=== PATIENT | male | born 1940 | race Caucasian/White ===

== ENCOUNTER 2018-12-12 08:15 | Day surgery (SDC) | payer MEDICARE, OTHER, SELFPAY ==
[2018-12-12 08:43] VITALS: BP 130/74; PULSE 45; RESP 16; TEMP 36.6; O2SAT 98; BMI 29.2
[2018-12-12] MEDS: Lactated Ringers 1,000 ML 100 ML IV (09:03)
--- NOTE | 2018-12-12 09:16 | RAD_ITS ---
STUDY: X-RAY - LEFT KNEE REASON FOR EXAM: Male, 78 years old. Fluoroscopic images TECHNIQUE: Multiple fluoroscopic views of the knee were performed. COMPARISON: None. FINDINGS: Fluoroscopic images demonstrate placement of needle radiofrequency probes at the superior articular capsular margin of the femur and tibia. Total knee arthroplasty is in place. RAD/Knee 1 or 2 Views IMPRESSION: Fluoroscopic images of the knee, refer to surgical report. Electronically Signed: Shane Yin, at 17:38 EDT Tel , Service support ,
[2018-12-12] MEDS: MethylPREDNISolone Acetate 80 MG/ML Vial (09:19)
[2018-12-12] MEDS: Bupivacaine 0.25% 30 ML Vial (09:19)
[2018-12-12 09:38] VITALS: BP 111/61; BP 130/74; PULSE 53; RESP 16; TEMP 36.6; O2SAT 95
[2018-12-12 09:45] VITALS: BP 112/67; BP 130/74; PULSE 51; RESP 16; O2SAT 97
[2018-12-12 09:50] VITALS: BP 117/74; BP 130/74; PULSE 49; RESP 16; O2SAT 96
[2018-12-12 09:55] VITALS: BP 126/74; BP 130/74; PULSE 53; RESP 16; TEMP 36.4; O2SAT 97
[2018-12-12 10:13] VITALS: BP 130/74
--- NOTE | 2018-12-12 12:24 | PCM.OPRPT ---
Report of Operation Date of Procedure: 12/12/18 Description of Surgical Findings:: PROCEDURE: Left knee radiofrequency ablation of the superior medial/superior lateral/inferior medial genicular nerve under direct visualization of fluoroscopy PREOPERATIVE DIAGNOSES: Osteoarthritis of the left knee, chronic postoperative knee pain POSTOPERATIVE DIAGNOSES: Osteoarthritis of the left knee, chronic postoperative knee pain ANESTHESIA: MAC COMPLICATIONS: None BLOOD LOSS: Minimal PROCEDURE IN DETAIL: History and physical today was reviewed. Risks and benefits of procedure explained. The patient understood, agreed to the procedure and informed consent was obtained. IV inserted per routine protocol. The patient was taken to the operating room, placed in the Supine position with a pillow underneath the left knee the left knee area was prepped and draped in a sterile fashion using iodine x3 nephroscopy guidance AP view the left knee was visualized the skin and subcutaneous tissue in size approximately 10 cc of preservative-free 1% lidocaine using a 25-gauge regular needle at the facility of the superior medial and superior lateral and inferior medial genicular nerves under direct visualization fluoroscopy starting at the left superior medial ending at the left inferior medial passing through the left superior lateral using a 10 cm with a 10 mm curved active tip radiofrequency ablation needle the needle passed through the skin the tip of the needle was maneuver and directed towards the diaphyseal junction of each corresponding level once the tip of the needle was at the vicinity of each corresponding genicular nerves under direct visualization with fluoroscopy on AP as well as lateral view to confirm correct placement of the needles stylette of each needle was then removed the radiofrequency ablation probe was then inserted at each level impedance was then recorded at the superior medial 324 at the superior lateral 379 at the inferior medial 265 oh motor evoked potential was then initiated to 1.5 V without any apparent motor response the probe was then removed intact and after repeated negative aspiration and confirmation of AP as well as lateral view a total of 6 cc of preservative-free 1% lidocaine were injected in divided doses between those 3 levels the probes were then inserted in each needles radiofrequency ablation was then initiated to 80 ?C for 90 seconds at each level once concluded the probes were then removed intact and a total of 6 cc of preservative-free 0.25% Marcaine with 40 mg of Depo-Medrol were injected in divided doses between those 3 levels the needles were then removed intact patient experienced no signs or symptoms of intravascular injection patient experienced no paresthesia. The procedure was completed without any apparent difficulty, any complication. The patient appeared to tolerate well. Sensory as well as motor exam was unchanged from prior to procedure. ASSESSMENT AND PLAN: This is a 78-year-old male with osteoarthritis of the left knee, chronic postoperative knee pain status post left knee genicular nerve radiofrequency ablation under fluoroscopic guidance. The patient will continue his current medications. The patient will follow up in approximately 2 weeks for reevaluation.
== END 2018-12-12 10:22 | disposition home or self-care (01) ==
LOC: SDC 08:16 → AC 08:18
PROVIDERS: Family Provider Internal Medicine; PCP Internal Medicine; Referring Provider Anesthesiology Pain Medicine; Visit Provider Anesthesiology Pain Medicine
PROC: (CPT 64640; principal; 2018-12-12 09:25)
DX: M17.12 Unilateral primary osteoarthritis, left knee (principal); G89.28 Other chronic postprocedural pain; I25.10 Atherosclerotic heart disease of native coronary artery without angina pectoris; I25.2 Old myocardial infarction; I10 Essential (primary) hypertension; J43.9 Emphysema, unspecified; M79.7 Fibromyalgia; K21.9 Gastro-esophageal reflux disease without esophagitis; E78.00 Pure hypercholesterolemia, unspecified; Z95.5 Presence of coronary angioplasty implant and graft; Z86.711 Personal history of pulmonary embolism; Z79.01 Long term (current) use of anticoagulants; Z79.82 Long term (current) use of aspirin; Z79.899 Other long term (current) drug therapy; Z87.891 Personal history of nicotine dependence
CPT/HCPCS: 01991; 64640; 73560; 76000; J7120

== ENCOUNTER 2022-01-02 11:40 | Day surgery (SDC) | payer MEDICARE, OTHER, SELFPAY ==
[2022-01-02] VITALS (7 sets, daily range): BP systolic 142–180; BP diastolic 71–87; PULSE 56–63; RESP 16; TEMP 36.1–36.3; O2SAT 94–100; BMI 25.6
--- NOTE | 2022-01-02 11:45 | HP.PCM_ITS ---
History and Physical Date of Admission: 01/02/22 Date of Service:? 12/31/21 MR#: [id number] Acct: [id number] Name:? ELVIE DEGROOT Rep #: [id number] : 1940 ? ? Provider: Dr. Rea Hendrickson MD Age/Sex:? 81/M ? ? Location: [facility] Status: Signed Intake Vital Signs ? 12/31/2208:38 Height 5 ft 10.5 in Weight: 184 lb 2 oz BMI 26.0 BP 169/73 H Blood Pressure Location Rt brachial Position Sitting Respiration 16 Pulse 75 Pulse Source Monitor Temp 97.4 F L Temp Source Temporal Pulse Oximetry (%) 98 Oxygen Delivery MethodB room air Intake Visit Reasons:?PORT - [facility] SCHEDULED Chief Complaint: F/u for management of small cell lung cancer. DME Vendor: Port placement consult Is patient in pain?: No Allergies Penicillins Allergy (Verified 12/31/21 09:39) Unknown Medications albuterol sulfate 90 mcg/actuation aerosol inhaler 1 - 2 puff inhalation Q4H PRN PRN Sob &/Or Wheezing 12/07/18 [History Confirmed 12/31/21] aspirin 81 mg tablet,delayed release 81 mg PO DAILY 12/07/18 [History Confirmed 12/31/21] atenolol 25 mg tablet 25 mg PO DAILY 12/07/18 [History Confirmed 12/31/21] budesonide-formoterol HFA 160 mcg-4.5 mcg/actuation aerosol inhaler 2 puff inhalation BID 12/07/18 [History Confirmed 12/31/21] losartan 50 mg tablet 50 mg PO DAILY 12/07/18 [History Confirmed 12/31/21] pyridoxine (vitamin B6) 25 mg tablet 25 mg PO DAILY 12/07/18 [History Confirmed 12/31/21] rosuvastatin 40 mg tablet 40 mg PO DAILY 12/07/18 [History Confirmed 12/31/21] guaifenesin 600 mg tablet, extended release 12 hr 600 mg PO BID 12/12/21 [History Confirmed 12/31/21] ipratropium bromide 0.02 % solution for inhalation 500 mcg inhalation 12/12/21 [History Confirmed 12/31/21] prednisone 10 mg tablet tablet PO 12/12/21 [History Confirmed 12/31/21] sodium chloride 1 gram tablet 1,000 mg PO QD-QID PRN electrolyte replenishment #90 tabs 12/16/21 [Rx Confirmed 12/31/21] dexamethasone 4 mg tablet (Decadron) 4 mg PO DAILY #30 tabs 12/29/21 [Rx Confirmed 12/31/21] tramadol 50 mg tablet 50 mg PO TID PRN pain #60 tabs 12/29/21 [Rx Confirmed 12/31/21] PFSH Medical History? Abdominal aneurysm Surgical History? Hx of heart artery stent Hx of heart bypass surgery Hx of total knee replacement Family History? Mother Cancer ?? ? lungFather Heart disease CVA (cerebral vascular accident)Brother Heart diseaseSister Colon cancer Social History? Smoking Status:? Former smoker Tobacco: How many years used:? 40 how long ago did patient quit smoking:? 30 years HPI HPI HPI: 81-year-old male presents office with his for port placement due to small cell lung cancer?right lung.? Oncology is planning to try to start the treatment on 01/06 if possible.? Patient's PET scan did show some viable neoplasms in bilateral cervical areas as well. ROS General General: Yes weight change and fatigue; No appetite, colon cancer or breast cancer Additional Details: Recent 20 pound weight loss since November HEENT HEENT: No difficulty swallowing, eye injury, eye surgery, swollen glands or hoarseness Endo Endocrine: No thyroid disease, diabetes mellitus, thyroid cancer, Hair loss, heat intolerance or cold intolerance Skin Skin: No rash or changing moles Musc Musculoskeletal: No back problems, arthritis, rheumatoid arthritis, gout or joint pain Cardio Cardiovascular: Yes heart disease, high blood pressure, heart attack and heart stent; No murmur, pacemaker, atrial fibrillation, palpitations, shortness of breat with exertion or chest pain Psych Psychiatric: No depression, anxiety or hearing voices Resp Respiratory: Yes shortness of breath, No sleep apnea, Yes cough, Yes COPD, No asthma, No emphysema and Yes wheezing Gastro Gastrointestinal: No abdominal pain, No nausea or vomiting, No diarrhea, No constipation, No blood in stool, Yes acid reflux, No hemorrhoids, No ulcers, No gallbladder problem and No black,tarry stools Bobo Hematologic: Yes blood thinners, No blood disorders, No bleeding, No anemia and No blood clots Additional Details: ASA 81mg Neuro Neurologic: No numbness and No tingling Exam Const General: cooperative, healthy appearing and no acute distress [facility] Head: normal to inspection Neck Neck: normal visual inspection Chest Other: Palpation inspection of bilateral upper chest normal Resp Effort & Inspection: normal respiratory effort Cardio Rate: regular rate GI Inspection: non-distended Palpation: soft Skin General: no rashes or lesions noted Neuro General: patient oriented x3 Extrem General: no clubbing, cyanosis or edema Psych Affect: normal affect Assessment and Plan Assessment and Plan (1) Encounter for fitting and adjustment of vascular catheter: ?Status:?Acute (2) Small cell lung cancer, right lower lobe: ?Status:?Acute ?Comment: 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 Discussed SCLC, metastatic disease, treatment with chemotherapy and Immunotherapy vs supportive care. Pt wants therapy. Suggested therapy with Cisplatin/Etoposide and Imfinzi. Pt agrees to proceed. (3) Cancer-related pain: ?Status:?Acute ?Comment: Due to bone metastases. Coding Level of Care Code Off vis,new,level 3 Diagnoses Encounter for fitting and adjustment of vascular catheter? Z45.2 Small cell lung cancer, right lower lobe? C34.31 Cancer-related pain? G89.3 12/31/21 1007 <Electronically signed by Rea Hendrickson MD> Date Rea Hendrickson MD
[2022-01-02] MEDS: Lactated Ringers 1,000 ML 15 ML IV (12:17)
[2022-01-02] MEDS: Lidocaine 1% /Epi 1:100 (20ml) 20 ML Vial (13:20)
--- NOTE | 2022-01-02 13:51 | OP.PCM_ITS ---
Report of Operation Date of Procedure: 01/02/22 Pre-Operative Diagnosis: Z45.2, small cell lung cancer Post-Operative Diagnosis: Same Surgery/Procedure Performed:: 1. Placement of right IJ Port-A-Cath, 2. Use of ultrasound, 3. Use of fluoroscopy Surgeon: Rea Hendrickson Type of Anesthesia: Local MAC Anesthesiologist: Omar Vance Special Medications: Clindamycin 900 mg IV x1 Estimated Blood Loss (mL): <10 cc Fluids Replaced: Per anesthesia Description of Procedure: After informed consent was given, the patient was brought to the operating room and placed in the supine position. Appropriate time out protocol was followed. Patient was then given IV conscious sedation for anesthesia. The patient's bilateral upper chest and neck were then prepped with a surgical skin preparation and sterile surgical drapes were placed. After proper landmarks were ascertained, the skin at the upper right chest area was then infiltrated with 1:1 mixture of 1% lidocaine with epinephrine and 0.5% marcaine. A needle trocar was then inserted into the right internal jugular vein with ultrasound guidance-multiple vessels were viewed with u/s and the right IJ was chosen?metastatic lesion noted abutting the jugular bilaterally-- and there was good aspiration of venous blood. A wire was then threaded into the needle trocar and this was visualized under fluoroscopy to ensure that the wire was in the superior vena cava. Once this was done, then the needle trocar was removed. A small skin lynn was made with an 11 blade knife at the wire entrance site. The dilator with the introducer sheath attached was then placed over the wire into the right internal jugular vein via the Seldinger technique and this was visualized under fluoroscopy. The dilator and sheath were in proper position as visualized by fluoroscopy. A subcutaneous pocket was then created caudad to the catheter insertion site. A transverse skin incision was made after the skin and subcutaneous tissues were infiltrated with local anesthetic. Blunt dissection was then used to create a space large enough for placement of the subcutaneous port. The catheter was then tunneled into the subcutaneous pocket. The wire and dilator were then removed. The catheter was then threaded into the introducer sheath and was positioned with its tip at the junction of the superior vena cava and the right atrium as visualized under fluoroscopy. The excess catheter was transected. The catheter was then attached to the s ubcutaneous port using manufacturers guidelines. The catheter was flushed with a heparin saline mixture prior to placement. Hemostasis was carefully controlled with electrocautery. The port was sutured to the subcutaneous fascia using 2-0 Vicryl suture at two sites. The port was then placed in the subcutaneous pocket. The incision were reapproximated with interrupted subdermal 3-0 vicryl sutures. The skin was reapproximated with 3-0 nylon suture in a interrupted fashion. Steristrips were used for reinforcement of the skin closure at IJ insertion site and a sterile opsite dressings were applied. The patient tolerated the procedure well. Grafts/Implants Used: [employer] PowerPort isp M.R.I. 6Fr Lot [id number] Complications none
--- NOTE | 2022-01-02 13:54 | DCINST_ITS ---
Discharge Instructions Procedure Port-A-Cath Diet Discharge Diet: Light diet - advance as tolerated Activity May shower in (days): 5 (Keep port site clean and dry x5 days. Neck incision okay to get wet after 1 day. Okay to lower shower and upper sponge bath. OR okay to taper off port site with a Ziploc bag to shower) Lifting Restrictions: No lifting > 15 pounds for 3 days with the arm on the side of the port Dressing / Incision Call your doctor if your incision/area has: Continuous Slow Oozing, Sudden Increased Bleeding, Increased Pain/ Swelling, Increased Redness, Foul Smelling Discharge and Swelling at the incision site Call your doctor if you observe: Fever of 101 or Higher Change Dressing in: 2 days Follow Up Care Please Follow Up With: Rea Hendrickson MD When: In 10 days for permanent suture removal?call office for appointment Test Results: Test results from this visit will be discussed in further detail at your follow- up appointment, if applicable. Discharge Plan Admission Attending Provider: Rea Hendrickson Primary Care Provider: Lilibeth Ayala Discharge Orders/Prescriptions Prescriptions: No Action guaifenesin 600 mg tablet extended release 12hr 600 mg PO BID ipratropium bromide 0.02 % solution 500 mcg inhalation BID Label Comments: INHALE 1 VIAL IN NEBULIZER 4 TIMES DAILY NEEDED sodium chloride 1 gram tablet 1,000 mg PO QD-QID PRN (Reason: electrolyte replenishment) Qty: 90 0RF dexamethasone [Decadron] 4 mg tablet 4 mg PO DAILY Qty: 30 0RF tramadol 50 mg tablet 50 mg PO TID PRN (Reason: pain) Qty: 60 0RF lidocaine-prilocaine 2.5-2.5 % cream 1 applic topical ONCE PRN (Reason: port access) 30 Days Qty: 30 2RF ondansetron 8 mg tablet,disintegrating 8 mg PO Q8H PRN (Reason: nausea and vomiting) Qty: 30 2RF prochlorperazine maleate 10 mg tablet 10 mg PO Q6H PRN (Reason: nausea and vomiting) Qty: 30 2RF losartan 50 MG tablet 50 mg PO DAILY pyridoxine (vitamin B6) 25 MG tablet 25 mg PO DAILY atenolol 25 MG tablet 25 mg PO DAILY aspirin 81 MG tablet,delayed release (DR/EC) 81 mg PO DAILY rosuvastatin 40 MG tablet 40 mg PO DAILY budesonide-formoterol 1 INHALER inhaler 2 puff inhalation BID albuterol sulfate 1 INHALER inhaler 1 - 2 puff inhalation Q4H PRN PRN (Reason: Sob &/Or Wheezing) Referrals / Follow Up: Lilibeth Ayala MD [Primary Care Provider] - Disposition Disposition (needs filled in before D/C Order can be placed): Home, Self Care
--- NOTE | 2022-01-02 14:10 | RAD_ITS ---
STUDY: X-RAY CHEST REASON FOR EXAM: Male, 81 years old. port -- pacu TECHNIQUE: Single frontal view of the chest. COMPARISON: None. FINDINGS: There is a right-sided central venous catheter in place terminating within the expected region of the superior vena cava. There is a nonspecific opacity within the right lower lung that is partially curvilinear. Sternal cerclage wires are present from a prior sternotomy. There is cardiomegaly. Normal mediastinum and quan. Normal visualized pulmonary arteries. Normal visualized aortic arch and descending thoracic aorta. Normal visualized thoracic spine. There is a left ninth rib deformity consistent with a healed fracture. There is no demonstrated abnormality of the visualized soft tissue structures of the upper abdomen. RAD/CXR for Line Placement IMPRESSION: Right sided central venous catheter terminating at the expected region of the superior vena cava. Nonspecific opacity within the right lower lung likely secondary to underlying atelectasis and a possible neoplastic process. Electronically Signed: Coty Zamora MD at 14:28 EDT ,
== END 2022-01-02 15:25 | disposition home or self-care (01) ==
LOC: SDC 11:40 → AC 11:41
PROVIDERS: PCP Internal Medicine; Referring Provider Surgery; Visit Provider Surgery
PROC: (CPT 36561; principal; 2022-01-02 13:00)
DX: Z45.2 Encounter for adjustment and management of vascular access device (principal); C79.51 Secondary malignant neoplasm of bone; C34.31 Malignant neoplasm of lower lobe, right bronchus or lung; J44.9 Chronic obstructive pulmonary disease, unspecified; G89.3 Neoplasm related pain (acute) (chronic); I25.10 Atherosclerotic heart disease of native coronary artery without angina pectoris; I25.2 Old myocardial infarction; K21.9 Gastro-esophageal reflux disease without esophagitis; R03.0 Elevated blood-pressure reading, without diagnosis of hypertension; Z95.1 Presence of aortocoronary bypass graft; Z95.5 Presence of coronary angioplasty implant and graft; Z79.82 Long term (current) use of aspirin; Z79.899 Other long term (current) drug therapy; Z87.891 Personal history of nicotine dependence
CPT/HCPCS: 36561; 71045; 77001; J7120

== ENCOUNTER 2022-01-08 12:29 | Emergency (ER) | payer MEDICARE, OTHER, SELFPAY ==
[2022-01-08 12:32] VITALS: BP 188/87; PULSE 63; RESP 14; TEMP 36.2; O2SAT 99; BMI 27.1
--- NOTE | 2022-01-08 14:55 | CT_ITS ---
STUDY: CT BRAIN WITHOUT CONTRAST REASON FOR EXAM: Male, 81 years old. Confusion RADIATION DOSAGE (If Supplied By Facility): CTDIvol = ( 44.99 ) mGy, DLP = ( 812.98 ) mGycm TECHNIQUE: Transaxial CT imaging of the brain was performed without administration of intravenous contrast material. Individualized dose optimization techniques were used for this CT. COMPARISON: No relevant priors. FINDINGS: Normal soft tissue structures. Normal calvarium. There is mild cerebral atrophy with widening of the extra-axial spaces and ventricular dilatation. There are areas of decreased attenuation within the white matter tracts of the supratentorial brain, consistent with microvascular disease changes. Normal basal ganglia and thalami. Normal brainstem. Normal cerebellum. There is no intracranial hemorrhage. There are no findings of an acute ischemic infarction. Atherosclerotic calcific plaques of the cavernous portions of the internal carotid arteries bilaterally. Normal visualized paranasal sinuses. CT/Brain/Head without Contrast IMPRESSION: Chronic involutional changes of the brain. Electronically Signed: Hermes Zavala MD at 15:37 EDT ,
--- NOTE | 2022-01-08 14:58 | RAD_ITS ---
STUDY: X-RAY CHEST REASON FOR EXAM: Male, 81 years old. Confusion TECHNIQUE: AP and lateral views of the chest. COMPARISON: Comparison is made with prior study dated 01/02/2022. FINDINGS: A right-sided anu catheter seen with the tip in the superior vena cava. EKG electrodes are seen. Persistent right lower lobe infiltrate. This is unchanged. Underlying emphysematous changes worse in the upper lobes. There is no demonstrated pleural abnormality. Sternal cerclage wires and vascular clips are present from a prior sternotomy and coronary artery bypass graft procedure (CABG). Normal mediastinum and quan. Normal visualized pulmonary arteries. There is atherosclerotic tortuosity of the aortic arch and descending thoracic aorta. Normal visualized thoracic spine. Normal visualized ribs, clavicles, and shoulders. There is no demonstrated abnormality of the visualized soft tissue structures of the upper abdomen. RAD/Chest PA and Lateral IMPRESSION: Stable right lower lobe infiltrate. Remainder of examination is unchanged. Electronically Signed: Hermes Zavala MD at 15:47 EDT ,
--- NOTE | 2022-01-08 14:59 | EX.ED.DYSGE1 ---
HPI History of Present Illness Chief Complaint: Confusion Informant: patient and spouse/S.O. Onset/Context/Timing Onset: Yesterday Context: Gradual Onset Timing: Intermittent Quality: Patient doesn't remember any events from yesterday or this morning Location: Generalized Worsened by: Nothing Relieved by: Nothing Narrative Narrative: Patient presents with confusion and dizziness. Patient states that he does not remember getting his chemotherapy yesterday. Patient states he remembers waking up and getting dressed but then does not remember anything around his chemotherapy treatment. Patient remembers waking up and getting dressed again this morning. Patient states he has been confused intermittently since yesterday. Patient states it lasted approximately 20 minutes. Patient states he had an episode of dizziness yesterday. Patient states his dizziness is worse with standing. [facility] Medical History Abdominal aneurysm Alcohol use Back pain Cancer Cardiology follow-up encounter COPD (chronic obstructive pulmonary disease) Easy bruising Encounter for education Former smoker Gastric reflux Headache History of echocardiogram History of heart attack History of steroid therapy History of stress test Hx of back injury Hypertension Lung cancer Pulmonary embolism Syncope Wears dentures Wears glasses Home Medications albuterol sulfate 90 mcg/actuation aerosol inhaler 1 - 2 puff inhalation Q4H PRN PRN Sob &/Or Wheezing 12/07/18 [History Last Taken Unknown] aspirin 81 mg tablet,delayed release 81 mg PO DAILY 12/07/18 [History Last Taken 01/01/22] atenolol 25 mg tablet 25 mg PO DAILY 12/07/18 [History Last Taken 01/02/22] budesonide-formoterol HFA 160 mcg-4.5 mcg/actuation aerosol inhaler 2 puff inhalation BID 12/07/18 [History Last Taken 12/12/18] losartan 50 mg tablet 50 mg PO DAILY 12/07/18 [History Last Taken 01/02/22] pyridoxine (vitamin B6) 25 mg tablet 25 mg PO DAILY 12/07/18 [History Last Taken Unknown] rosuvastatin 40 mg tablet 40 mg PO DAILY 12/07/18 [History Last Taken Unknown] guaifenesin 600 mg tablet, extended release 12 hr 600 mg PO BID 12/12/21 [History Last Taken 01/02/22] ipratropium bromide 0.02 % solution for inhalation 500 mcg inhalation BID 12/12/21 [History Last Taken Unknown] dexamethasone 4 mg tablet (Decadron) 4 mg PO DAILY #30 tabs 12/29/21 [Rx Last Taken Unknown] tramadol 50 mg tablet 50 mg PO TID PRN pain #60 tabs 12/29/21 [Rx Last Taken Unknown] lidocaine-prilocaine 2.5 %-2.5 % topical cream 1 applic topical ONCE PRN port access 30 days #30 grams 12/31/21 [Rx Last Taken Unknown] ondansetron 8 mg disintegrating tablet 8 mg PO Q8H PRN nausea and vomiting #30 tabs 12/31/21 [Rx Last Taken Unknown] prochlorperazine maleate 10 mg tablet 10 mg PO Q6H PRN nausea and vomiting #30 tabs 12/31/21 [Rx Last Taken Unknown] sodium chloride 1 gram tablet 1,000 mg PO BID 01/08/22 [History Last Taken Unknown] Allergy/AdvReac Type Severity Reaction Status Date / Time Penicillins Allergy Unknown Verified 01/08/22 12:32 Family History Mother Cancer lung Father Heart disease CVA (cerebral vascular accident) Brother Heart disease Sister Colon cancer Surgical History History of cardiac catheterization Hx of colonoscopy Hx of heart artery stent Hx of heart bypass surgery Hx of hernia repair Hx of knee surgery Hx of left cataract extraction Hx of right cataract extraction Hx of total knee replacement Social History Smoking Status: Former smoker Tobacco: How many years used: 40 how long ago did patient quit smokin years ROS ROS ED Constitutional Constitutional ED: Denies chills or fever(s) Eyes Eyes: Denies blurry vision or change in vision ENT ENT ED: Denies rhinorrhea or sore throat Cardiovascular Cardiovascular: Denies chest pain or palpitations Respiratory/Chest Respiratory/Chest: Reports cough and dyspnea Gastrointestinal Gastrointestinal: Reports nausea; Denies vomiting Genitourinary Genitourinary ED: Denies dysuria or hematuria Musculoskeletal Musculoskeletal: Denies back pain or neck pain Integumentary Denies abscess or rash Neurologic Neurologic: Reports headache(s); Denies weakness Allergic/Immunologic Allergic/Immunologic ED: Denies mouth swelling or urticaria EXAM Physical Exam Const Vital Signs: 01/08/22 12:32 01/08/22 15:12 Temperature 97.1 F L Temperature Source Temporal Pulse Rate 63 63 Respiratory Rate 14 18 Blood Pressure 188/87 H 188/83 H Blood Pressure Mean 120 118 Pulse Ox 99 96 Oxygen Delivery Method Room Air Positive well nourished and well developed General Appearance ED: well developed and NAD HEENT Reports moist mucous membranes Neck supple and no JVD Resp normal respiratory effort and clear to auscultation bilaterally Cardio regular rate, regular rhythm and no murmurs GI normal to inspection, nondistended, normoactive bowel sounds and non-tender Palpation: soft Extremity normal to inspection General Extremety ED: Negative for edema or tenderness General Extremity: Negative for edema Neuro oriented x3, CN's II-XII intact bilaterally and no sensory deficits noted Sensorium / Orientation: alert Motor Exam: strength 5/5 throughout Psych mental status grossly normal Skin no rashes or lesions noted MDM MDM MDM Narrative Medical decision making narrative: CBC within normal limits. PT and INR PTT were essentially within normal limits. Comprehensive metabolic profile shows a sodium of 1 and a chloride of 86. BUN was slightly elevated at 22. Creatinine was normal. Lipase was normal. Urinalysis does not show any evidence of urinary tract infection. CT scan of the brain was obtained. There are chronic involutional changes. There is no acute abnormality. There is no evidence of metastasis. This was interpreted by the radiologist and reviewed by myself. PA and lateral chest x-ray was obtained. There are 2 views. On my interpretation, lung petit show a stable right lower lobe infiltrate that is unchanged compared to previous. There is normal cardiac silhouette. Bony thorax is normal. There is no acute process noted. Radiologist also interpreted the x-ray and agrees. Patient was given IV fluids for the hyponatremia. Case was discussed with Dr. Palomino who is covering for Dr. Montana. He recommended obtaining a serum osmolality and urine osmolality. These were ordered. He feels that the patient is safe to be discharged home. Patient has an appointment tomorrow at the oncologist office. Patient was instructed to follow-up with this appointment. Patient and understood and were agreeable with the plan. All questions were answered. Lab Data Attestation: I reviewed the patient's lab results. Labs: Laboratory Results - last 24 hr 01/08/22 01/08/22 01/08/22 13:50 13:50 13:50 WBC 5.2 RBC 3.85 L Hgb 11.5 L Hct 32.7 L MCV 84.9 MCH 29.9 MCHC 35.2 RDW Std Deviation 40.3 RDW Coeff of Priti 13.1 Plt Count 166 MPV 9.2 Immature Gran % (Auto) 1.000 H Neut % (Auto) 91.0 H Lymph % (Auto) 3.4 L [place] % (Auto) 4.6 Eos % (Auto) 0.0 Baso % (Auto) 0.0 Absolute Neuts (auto) 4.8 Absolute Lymphs (auto) 0.18 L Nucleated RBC % 0 Differential Comment SCANNED PT 13.6 INR 1.1 APTT 24.0 L Sodium 119 L* Potassium 5.0 Chloride 86 L Carbon Dioxide 25.0 Anion Gap 8 BUN 22 H Creatinine 0.82 Estim Creat Clear Calc 72.95 Est GFR (MDRD) Af Amer 115 Est GFR (MDRD) Non-Af 95 BUN/Creatinine Ratio 26.7 H Glucose 101 Lactic Acid Calcium 8.6 Total Bilirubin 0.80 AST 28 ALT 41 Alkaline Phosphatase 91 Total Protein 6.0 L Albumin 3.2 Globulin 2.8 Albumin/Globulin Ratio 1.1 Lipase 46 L Urine Color Urine Clarity Urine pH Ur Specific [place] Urine Protein Urine Glucose (UA) Urine Ketones Urine Occult Blood Urine Nitrite Urine Bilirubin Urine Urobilinogen Ur Leukocyte Esterase Urine RBC Urine WBC Ur Squamous Epith Cells Urine Bacteria Urine Mucus 01/08/22 01/08/22 13:50 15:10 WBC RBC Hgb Hct MCV MCH MCHC RDW Std Deviation RDW Coeff of Priti Plt Count MPV Immature Gran % (Auto) Neut % (Auto) Lymph % (Auto) [place] % (Auto) Eos % (Auto) Baso % (Auto) Absolute Neuts (auto) Absolute Lymphs (auto) Nucleated RBC % Differential Comment PT INR APTT Sodium Potassium Chloride Carbon Dioxide Anion Gap BUN Creatinine Estim Creat Clear Calc Est GFR (MDRD) Af Amer Est GFR (MDRD) Non-Af BUN/Creatinine Ratio Glucose Lactic Acid 1.5 Calcium Total Bilirubin AST ALT Alkaline Phosphatase Total Protein Albumin Globulin Albumin/Globulin Ratio Lipase Urine Color Yellow Urine Clarity Clear Urine pH 7.0 Ur Specific [place] 1.010 Urine Protein Negative Urine Glucose (UA) Normal Urine Ketones Negative Urine Occult Blood 10 H Urine Nitrite Negative Urine Bilirubin Negative Urine Urobilinogen Normal Ur Leukocyte Esterase Negative Urine RBC 0-5 SEEN Urine WBC 0 SEEN Ur Squamous Epith Cells 0 SEEN Urine Bacteria RARE Urine Mucus 0 SEEN Radiography Chest X-Ray - ED: 2 View, Read by ED Physician, Read by Radiologist and Right Infiltrate (Unchanged from previous) Diagnostic Testing: Clinical Impression(s) from Imaging Studies Brain CT 01/08/22 14:55 IMPRESSION: Chronic involutional changes of the brain. Electronically Signed: Hermes Zavala MD at 15:37 EDT , Chest X-Ray 01/08/22 14:58 IMPRESSION: Stable right lower lobe infiltrate. Remainder of examination is unchanged. Electronically Signed: Hermes Zavala MD at 15:47 EDT , Discharge Plan Triage Chief Complaint: Confusion ED Provider: Ashish Menendez Dx/Rx/DC Orders Clinical Impression: Hyponatremia, Small cell lung cancer, right lower lobe, Confusion Instructions: ED Confusion, ED Hyponatremia Prescriptions: No Action guaifenesin 600 mg tablet extended release 12hr 600 mg PO BID ipratropium bromide 0.02 % solution 500 mcg inhalation BID Label Comments: INHALE 1 VIAL IN NEBULIZER 4 TIMES DAILY NEEDED dexamethasone [Decadron] 4 mg tablet 4 mg PO DAILY Qty: 30 0RF tramadol 50 mg tablet 50 mg PO TID PRN (Reason: pain) Qty: 60 0RF lidocaine-prilocaine 2.5-2.5 % cream 1 applic topical ONCE PRN (Reason: port access) 30 Days Qty: 30 2RF ondansetron 8 mg tablet,disintegrating 8 mg PO Q8H PRN (Reason: nausea and vomiting) Qty: 30 2RF prochlorperazine maleate 10 mg tablet 10 mg PO Q6H PRN (Reason: nausea and vomiting) Qty: 30 2RF losartan 50 MG tablet 50 mg PO DAILY pyridoxine (vitamin B6) 25 MG tablet 25 mg PO DAILY atenolol 25 MG tablet 25 mg PO DAILY aspirin 81 MG tablet,delayed release (DR/EC) 81 mg PO DAILY rosuvastatin 40 MG tablet 40 mg PO DAILY budesonide-formoterol 1 INHALER inhaler 2 puff inhalation BID albuterol sulfate 1 INHALER inhaler 1 - 2 puff inhalation Q4H PRN PRN (Reason: Sob &/Or Wheezing) sodium chloride 1 gram tablet 1,000 mg PO BID Primary Care Provider: Lilibeth Ayala Referrals: Lilibeth Ayala MD [Primary Care Provider] - Jason Montana MD [Med Staff - Active Staff] - Keep [facility] appointment Disposition Disposition: Home, Self Care
[2022-01-08 15:12] VITALS: BP 188/83; PULSE 63; RESP 18; O2SAT 96
[2022-01-08 15:17] LABS: Absolute Lymphocyte Count 0.18 X10^3/uL (0.83-4.51); Absolute Neutrophil Count 4.8 X10^3/uL (2.0-7.7); Hematocrit 32.7 % (40-54); Hemoglobin 11.5 g/dL (13.0-16.5); Lymphocyte # 0.18 X10^3/ul (0.83-4.51); Lymphocyte % 3.4 % (19-41); Mean Corp Hgb Conc 35.2 g/dL (32-36); Mean Corpuscular Hgb 29.9 pg (27.0-32.0); Mean Corpuscular Volume 84.9 fL (80-94); Mean Platelet Vol. 9.2 fl (6.2-12.0); Monocyte# 0.24 X10^3/uL; Monocyte% 4.6 % (0-10); NRBC Flagged by Analyzer 0 % (0-5); Neutrophil # 4.77 X10^3/uL (2.7-7.7); POSITIVE DIFFERENTIAL YES; Platelet Count 166 K/mm3 (150-450); RBC Distribution Width CV 13.1 % (11.6-14.6); RBC Distribution Width SD 40.3 fl (35.1-43.9); Red Blood Count 3.85 M/mm3 (4.6-6.2); White Blood Count 5.2 K/mm3 (4.4-11.0)
[2022-01-08 15:18] LABS: Mucous, Urine 0 SEEN /hpf (<or=2+); Squamous Epithelial Cells - UA 0 SEEN /hpf (0-5); White Blood Cells 0 SEEN /hpf (0-5)
[2022-01-08 15:18] LABS: Differential Indicated SCAN CRITERIA MET
[2022-01-08 15:26] LABS: International Normalized Ratio 1.1; Prothrombin Time (Protime)PT. 13.6 SECONDS (11.7-14.9)
[2022-01-08 15:27] LABS: Color, Urine Yellow (Yellow); Glucose, Dipstick Normal (Normal); Ketone-Dipstick Negative (Negative); Leukocyte Esterase-Dipstick Negative /ul (Negative); Nitrite-Dipstick Negative (Negative); Occult Blood-Urine 10 /ul (Negative); Protein-Dipstick Negative (Negative); Urine Bilirubin Dipstick Negative (Negative); Urine Urobilinogen Normal (Normal)
[2022-01-08 15:38] LABS: Urine Clarity Clear (Clear)
[2022-01-08 15:43] LABS: Lactic Acid 1.5 mmol/L (0.4-1.9)
[2022-01-08 15:44] LABS: Bacteria RARE /hpf (None Seen); Red Blood Cells-Urine 0-5 SEEN /hpf (0-5)
[2022-01-08 15:47] LABS: ALB/GLOB Ratio 1.1 RATIO (0.9-2.4); AST(SGOT) 28 U/L (15-37); Alanine Aminotransfer ALT/SGPT 41 U/L (16-61); Albumin, Serum 3.2 g/dL (3.2-5.0); Alkaline Phosphatase 91 U/L (45-117); Anion Gap 8 (5-15); BUN 22 mg/dL (7-18); BUN/Creat Ratio 26.7 RATIO (10-20); Calcium,Total 8.6 mg/dL (8.5-10.1); Chloride 86 mmol/L (98-107); Creatinine, Serum 0.82 mg/dL (0.70-1.30); EST Glomerular Filtration Rate 95 mL/min (>60); Est Glom Filt Rate - Afr Amer 115 mL/min (>60); Estimated Creatinine Clearance 72.95 ml/min; Globulin 2.8 g/dL (2.2-4.2); Glucose 101 mg/dL (74-106); Lipase 46 U/L (73-393); Sodium Level 119 mmol/L (136-145)
[2022-01-08 15:49] LABS: Differential Comment SCANNED
[2022-01-08] MEDS: 0.9% Normal Saline 1,000 ML 1000 ML IV (15:58)
[2022-01-08 17:00] VITALS: BP 184/82; PULSE 67; RESP 25; O2SAT 98
[2022-01-08 18:04] LABS: Osmolality, Serum 255 mOsm/KG (280-301)
== END 2022-01-08 17:02 | disposition home or self-care (01) ==
PROVIDERS: Emergency Provider Emergency Medicine; PCP Internal Medicine; Visit Provider Emergency Medicine
DX: E87.1 Hypo-osmolality and hyponatremia (principal); C34.31 Malignant neoplasm of lower lobe, right bronchus or lung; J44.9 Chronic obstructive pulmonary disease, unspecified; R41.0 Disorientation, unspecified; I25.2 Old myocardial infarction; I10 Essential (primary) hypertension; Z95.5 Presence of coronary angioplasty implant and graft; Z79.82 Long term (current) use of aspirin; Z79.899 Other long term (current) drug therapy; Z86.711 Personal history of pulmonary embolism; Z87.891 Personal history of nicotine dependence
CPT/HCPCS: 36415; 70450; 71046; 80053; 81001; 83605; 83690; 83930; 85025; 85610; 85730; 87040; 96360; 99284; J7030; A4216

== ENCOUNTER → 2022-06-24 | Outpatient (CLI) | payer MEDICARE, OTHER, SELFPAY ==
--- NOTE | 2022-06-24 07:44 | CT_ITS ---
STUDY: CT CHEST, ABDOMEN T PELVIS WITH CONTRAST REASON FOR EXAM: Male, 81 years old. ext stage SCLC assess response to treatment. RADIATION DOSAGE (If Supplied By Facility): CTDIvol = ( 19.04 ) mGy, DLP = ( 1541.91 ) mGycm TECHNIQUE: Transaxial imaging was performed following intravenous administration of Oral and amp;amp; IV Gastrografin and amp;amp; 100mL Isovue-300. Multiplanar coronal and sagittal images were reformatted. Individualized dose optimization techniques were used for this CT. COMPARISON: Comparison is made with prior examination dated February 15, 2022. FINDINGS: CHEST A right-sided Port-A-Cath is seen with the tip in the superior vena cava. Stable focal linear density in the right lower lobe extending from the lateral aspect into the posterior segment of the right lower lobe. There is no demonstrated pleural abnormality. Sternal cerclage wires and vascular clips are present from a prior sternotomy and coronary artery bypass graft procedure (CABG). There is prominence of the right pretracheal lymph nodes as well as right hilar lymph nodes. Normal hilar regions. Normal unenhanced pulmonary arteries. Normal aorta arch and descending thoracic aorta. Sclerotic metastasis throughout the visualized vertebrae. There is no demonstrated abnormality of the visualized upper abdomen. ABDOMEN Normal liver. Normal gallbladder and extrahepatic biliary system. There are multiple benign calcified granulomata of the spleen. Normal pancreas. Normal bilateral adrenal glands. Right renal cysts. Normal left kidney. Normal visualized stomach. Normal small intestine. Normal colon. The appendix is visualized and appears normal. There is diffuse atherosclerotic calcification of the abdominal aorta,. Fusiform infrarenal abdominal aortic aneurysm with a transverse dimension of 3 cm. Endoluminal stent grafting is seen in the distal abdominal aorta with 2 distal limbs in the common iliac arteries bilaterally. Normal inferior vena cava. Normal retroperitoneum. Normal abdominal wall. Sclerotic foci are seen throughout several lumbar vertebrae as well as the pelvic bones. PELVIS Normal urinary bladder. The prostate is enlarged. It measures 4.3 cm x 3.8 cm. This causes indentation at the bladder base. There is no pelvic fluid. There is no pelvic lymphadenopathy or mass lesion. There is diffuse atherosclerotic calcification of the pelvic arteries. CT/CT Chest, Abd, Pel w/Contrast IMPRESSION: Bony metastasis. Stable linear density at the right lung base. Electronically Signed: Hermes Zavala MD at 10:11 EDT ,
== END | disposition home or self-care (01) ==
LOC: CT 07:39
PROVIDERS: PCP Internal Medicine; Referring Provider Nurse Practitioner Family; Visit Provider Nurse Practitioner Family
DX: C34.31 Malignant neoplasm of lower lobe, right bronchus or lung (principal); C79.51 Secondary malignant neoplasm of bone
CPT/HCPCS: 71260; 74177; Q9967

== ENCOUNTER → 2022-06-29 | Outpatient (CLI) | payer MEDICARE, OTHER, SELFPAY ==
--- NOTE | 2022-06-29 08:10 | NM_ITS ---
CLINICAL: 81-year-old male with history of primary lung carcinoma. WHOLE BODY 99m Tc MDP RADIONUCLIDE BONE SCINTIGRAPHY COMPARISON: FDG PET CT study dated 12/24/2021 FINDINGS: Following the intravenous administration of 22.0 mCi of 99m Tc MDP, whole body bone images reveal: 1. Increased radiopharmaceutical concentration is defined in the left posterior lateral ninth rib. 2. Facilitated uptake is noted in the sixth thoracic vertebra posteriorly on the left and right, the fourth lumbar vertebra posteriorly on the left, fifth lumbar vertebra posteriorly on the right, the left wrist,, the acromioclavicular and sternoclavicular compartments of both shoulders, the medial tibial and femoral as well as patellofemoral compartment of the both knees, the visualized left forefoot. 3. Enhanced tracer distribution is defined in the right proximal femoral diaphysis, the middistal left femoral diaphysis. 4. The remaining skeletal structures are scintigraphically unremarkable with normal-appearing renal images and urinary bladder activity identified. A presumed asymptomatic left knee arthroplasty is defined with mild increased uptake noted in the femoral and tibial components consistent with normal postsurgical change. NM/Bone Scan Whole Body IMPRESSION: 1. The increase in radiopharmaceutical noted in the left posterior ninth rib is most consistent with trauma-fracture. Dedicated plain film radiography may be of benefit for further investigation. 2. Degenerative arthrosis is defined in the sixth thoracic and fourth-fifth lumbar vertebra, the left wrist, shoulders bilaterally, the visualized left forefoot, the right knee, the patellofemoral compartment of the left knee providing there is no history of patellar hardware placement. 3. Plain film radiography correlation is recommended in the region of the bilateral femoral diaphysis. Electronically Signed: Sergo Lema, at 20:47 EDT ,
== END | disposition home or self-care (01) ==
LOC: NM 08:08
PROVIDERS: PCP Internal Medicine; Referring Provider Internal Medicine Medical Oncology; Visit Provider Internal Medicine Medical Oncology
DX: C34.31 Malignant neoplasm of lower lobe, right bronchus or lung (principal)
CPT/HCPCS: 78306; A9503

== ENCOUNTER 2022-08-25 14:05 | Inpatient (IN) | payer MEDICARE, OTHER, SELFPAY ==
[2022-08-25 14:06] VITALS: BP 159/90; PULSE 73; RESP 18; TEMP 36.3; O2SAT 99
[2022-08-25 14:29] VITALS: BMI 30.8
--- NOTE | 2022-08-25 15:05 | NURSING ---
NO OLD EKGS
--- NOTE | 2022-08-25 15:09 | NURSING ---
MED SURG OBS DENIS,Vi SVC SYNDROME
[2022-08-25] MEDS: 0.9% Normal Saline 1,000 ML 150 ML IV ×2 (15:14→21:19)
[2022-08-25] MEDS: Orphenadrine 60 MG/2 ML Ampul IM (15:15)
[2022-08-25] MEDS: Ondansetron 4 MG/2 ML Vial IV (15:15)
[2022-08-25] MEDS: Morphine 4 MG/ML Syringe IV (15:15)
[2022-08-25] MEDS: Aspirin 81 MG TAB.CHEW 324 MG PO (15:18)
--- NOTE | 2022-08-25 15:21 | EDS_ITS ---
HPI History of Present Illness Chief Complaint: General Illness Narrative Narrative: Patient is a 82-year-old male who was sent to the ER from the oncology office of Dr. Montana. 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 Patient has history of lung cancer that has spread to the localized lymph nodes as well. Patient was having more swelling to his neck, arms, patient went to the ER Huan night. Patient has CT of the chest and neck, it was found out that patient had evidence of SVC syndrome. Patient had spoken and saw the oncologist in the office today. Patient was given a dose of Decadron 20 mg to the IV in the office and sent over to the ER for admission. Patient is going to have radiation tomorrow at 2 PM. Patient has no chest pain, no chest tightness, no shortness of breath. Patient has no abdominal pain, nausea or vomiting. Patient does have equal swelling to upper extremities, right slightly greater than left. Dr Montana did call ahead and gave information. Patient has a history of small cell stage IV lung cancer. Patient has had chemo in the past, he has not had any radiation yet. Last chemo treatment was back in February 2022. Patient's is at bedside, she is a good source of history. Patient has no recent falls, patient is also complaining of pain to the posterior cervical area, C5-7. Patient's is a good source of history at bedside. Patient has no other acute complaints at t his time. [facility] Medical History Abdominal aneurysm Alcohol use Back pain Bilateral knee pain Cancer Cancer, metastatic to bone Cardiology follow-up encounter Confusion COPD (chronic obstructive pulmonary disease) Easy bruising Encounter for education Former smoker Gastric reflux Headache History of echocardiogram History of heart attack History of steroid therapy History of stress test Hx of back injury Hypertension Lung cancer Neuropathy of both feet Pulmonary embolism Syncope Wears dentures Wears glasses Home Medications albuterol sulfate 90 mcg/actuation aerosol inhaler 1 - 2 puff inhalation Q4H PRN PRN Sob &/Or Wheezing 12/07/18 [History Last Taken 08/25/22] aspirin 81 mg tablet,delayed release 81 mg PO DAILY 12/07/18 [History Last Taken 08/25/22] atenolol 25 mg tablet 25 mg PO DAILY 12/07/18 [History Last Taken 08/25/22] budesonide-formoterol HFA 160 mcg-4.5 mcg/actuation aerosol inhaler 2 puff inhalation BID 12/07/18 [History Last Taken 08/25/22] losartan 50 mg tablet 50 mg PO DAILY 12/07/18 [History Last Taken 08/25/22] rosuvastatin 40 mg tablet 40 mg PO DAILY 12/07/18 [History Last Taken 08/25/22] ipratropium bromide 0.02 % solution for inhalation 0.5 mg inhalation BID 12/12/21 [History Last Taken 08/25/22] tumeric 100 mg-latasha 150 mg-olive 50 mg-oreg 150 mg-caprylate capsule 1 cap PO DAILY SUPPLEMENT 07/29/22 [History Last Taken 08/25/22] apixaban 5 mg tablet (Eliquis) 5 mg PO BID BLOOD THINNER 08/25/22 [History Last Taken 08/25/22] pantoprazole 20 mg tablet,delayed release 20 mg PO DAILY 08/25/22 [History Last Taken 08/25/22] sodium chloride 1,000 mg soluble tablet 1,000 mg PO DAILY SUPPLEMENT 08/25/22 [History Last Taken 08/25/22] vitamin B complex 1 tab PO DAILY SUPPLEMENT 08/25/22 [History Last Taken 08/25/22] Allergy/AdvReac Type Severity Reaction Status Date / Time Penicillins Allergy Intermediate Unknown Verified 08/25/22 15:54 Family History Mother Cancer lung Father Heart disease CVA (cerebral vascular accident) Brother Heart disease Sister Colon cancer Surgical History History of cardiac catheterization Hx of colonoscopy Hx of heart artery stent Hx of heart bypass surgery Hx of hernia repair Hx of knee surgery Hx of left cataract extraction Hx of right cataract extraction Hx of total knee replacement Social History Smoking Status: Former smoker Tobacco: How many years used: 40 how long ago did patient quit smokin years ROS ROS ED ROS Narrative REVIEW OF SYSTEMS: Unless otherwise stated in this report the patient's positive and negative responses for review of systems for constitutional, eyes, ENT, cardiovascular, respiratory, gastrointestinal, neurological, , musculoskeletal, and integument systems and related systems to the presenting problem are either stated in the history of present illness or were not pertinent or were negative for the symptoms and/or complaints related to the presenting medical problem. EXAM Physical Exam Narrative Exam Narrative: Vital signs reviewed and patient is not hypoxic. General: The patient appears well and in no apparent distress. Patient is resting comfortably on cart. Not toxic, lethargic, or listless. Skin: Warm, dry, no pallor noted. There is no rash noted. Head: Normocephalic, atraumatic; patient has mild swelling to neck, equal. Patient has mild to moderate tenderness palpation to the right paracervical area from C5-7. Mild tenderness to palpation to the left paracervical area from C6- 7. Patient has no rash, no abscess, no palpated mass. Patient has full range of motion of cervical spine mild difficulty or pain. No meningeal signs or symptoms. Eye: Normal conjunctiva, no drainage, EOMI. PERRL. Ears, Nose, Mouth, and Throat: oral mucosa is moist. Nares patent. Mouth without vesicles. Cardiovascular: Regular Rate and Rhythm, no murmurs, gallops, or rubs, patient has a port to the right upper chest wall that has been accessed in the oncology office. Is clean, dry, intact, no signs or concerns of infection. Respiratory: Patient is in no distress, no accessory muscle use, lungs are clear to auscultation, no wheezing, rales or rhonchi Back: non-tender, no CVA tenderness bilaterally to percussion. NO CTLS midline or paraspinal tenderness to palpation. GI: Soft, no tenderness to palpation, no masses appreciated. No rebound, guarding, or rigidity noted. Musculoskeletal: The patient has full range of motion of all extremities and joints with no difficulty; patient has swelling to bilateral upper extremities right is slightly greater than left., Otherwise no tenderness palpation to the posterior aspect of bilateral upper extremities. Patient has, forage motion of bilateral shoulder, elbow, wrist and hand with no difficulty or pain minimal diffuse pain to upper extremities, but he states is secondary to the swelling, no bony or joint tenderness. Patient has no tenderness to palpation to bilateral lower extremities posterior aspect, patient has no swelling to bilateral lower extremities that is significant. patient has no motor, no sensory deficits. Neurological: A&O x4, normal speech, no focal neurological deficits. Psychiatric: Cooperative Const Vital Signs: 08/25/22 14:06 08/25/22 14:27 08/25/22 15:27 Temperature 97.4 F L Temperature Source Temporal Pulse Rate 73 Respiratory Rate 18 Respiratory Pattern Normal Blood Pressure 159/90 H Blood Pressure Mean 113 Pulse Ox 99 Oxygen Delivery Method Room Air Room Air 08/25/22 15:29 Temperature 97.0 F L Temperature Source Temporal Pulse Rate 81 Respiratory Rate 25 H Respiratory Pattern Blood Pressure 178/82 H Blood Pressure Mean 114 Pulse Ox 94 Oxygen Delivery Method Room Air MDM MDM MDM Narrative Medical decision making narrative: Dr Montana called ahead to inform the patient was coming to the ER to be admitted for IV Decadron 4 mg every 6 hours, and patient will have radiation tomorrow. Patient's initial EKG showed questionable A-fib versus sinus arrhythmia. Second EKG shows normal sinus rhythm. Patient sodium is 125. Patient also has pancytopenia. Patient has no fever. Patient has been given IV fluids. Patient was given IV morphine and Norflex to help with cervical pain/cervical muscle spasm. Patient will be admitted for further evaluation. Patient had 20 mg of Decadron just prior to ER arrival. Patient is currently receiving immunotherapy monthly, he has had chemotherapy in the past, last treatment was February 2022. Patient is due to have radiation tomorrow per patient and , they were told this from . Patient has a port to his right upper chest wall. It is accessed still from the oncology office. Lab Data Attestation: I reviewed the patient's lab results. Labs: Laboratory Results - last 24 hr 08/25/22 08/25/22 08/25/22 15:12 15:12 15:12 WBC 3.6 L RBC 3.47 L Hgb 10.4 L Hct 31.5 L MCV 90.8 MCH 30.0 MCHC 33.0 RDW Std Deviation 43.7 RDW Coeff of Priti 13.2 Plt Count 127 L MPV 9.4 Immature Gran % (Auto) 0.600 Neut % (Auto) 86.2 H Lymph % (Auto) 7.0 L [place] % (Auto) 4.5 Eos % (Auto) 1.1 Baso % (Auto) 0.6 Absolute Neuts (auto) 3.1 Absolute Lymphs (auto) 0.25 L Nucleated RBC % 0 Differential Comment SCANNED Diff Path Review May foll Sodium 125 L Potassium 4.4 Chloride 92 L Carbon Dioxide 25.0 Anion Gap 8 BUN 14 Creatinine 0.79 Estim Creat Clear Calc 58.81 Est GFR (MDRD) Af Amer 122 Est GFR (MDRD) Non-Af 100 BUN/Creatinine Ratio 17.8 Glucose 93 Calcium 8.9 Magnesium 2.1 Troponin I High Sens 7 B-Natriuretic Peptide 78.7 Radiography Chest X-Ray - ED: 2 View and Read by ED Physician (Chest x-ray shows no acute cardiopulmonary disease, no infiltrate, no effusion. Port noted to right upper chest wall, sternotomy wires noted as well.) EKG Initial EKG: Attestation: I personally reviewed and interpreted this EKG as follows: Comments: EKG #1. EKG interpretation. Questionable sinus arrhythmia versus irregular irregular rhythm at 74 beats a minute. Normal axis deviation. No acute ST elevation, no acute ectopy. QTc of 430. EKG #2. Repeat EKG shows normal sinus rhythm at 78 beats a minute. Normal axis deviation. No acute ST elevation, no acute ectopy. QTc of 437. First EKG was questionable A-fib versus sinus arrhythmia. Second EKG shows normal sinus rhythm. Patient has no history of A-fib. Treatment and Re-Evaluation :: 1610 patient had relief from IV morphine and injection of Norflex. Patient cervical pain feels much better. Patient was just educated that there is no signs of A-fib currently. 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
[2022-08-25 15:29] VITALS: BP 178/82; PULSE 81; RESP 25; TEMP 36.1; O2SAT 94
--- NOTE | 2022-08-25 15:30 | RAD_ITS ---
INDICATION: chest pain EXAMINATION/TECHNIQUE: X-RAY - portable upright AP chest x-ray COMPARISON: 02/15/2022 FINDINGS: LINES/DEVICES: Right-sided port remains, tip not clearly seen. LUNGS: Hazy airspace opacities right lower lung field. No consolidation or pleural effusion. MEDIASTINUM AND CARDIOVASCULAR STRUCTURES: Cardiac silhouette stable within normal limits. Patient rotation distorts mediastinum, region of the azygous node appears prominent. BONES AND SOFT TISSUES: No acute changes. RAD/Chest 1 View (Portable) IMPRESSION: Hazy infiltrate right lower lung field suspicious for infection. Possible right suprahilar adenopathy. Electronically Signed: Singh Downey MD at 16:38 EDT ,
[2022-08-25 15:36] LABS: Absolute Lymphocyte Count 0.25 X10^3/uL (0.83-4.51); Absolute Neutrophil Count 3.1 X10^3/uL (2.0-7.7); Basophil# 0.02 X10^3/uL; Basophil% 0.6 % (0-1); Eosinophil# 0.04 X10^3/uL; Eosinophils% 1.1 % (0-5); Hematocrit 31.5 % (40-54); Hemoglobin 10.4 g/dL (13.0-16.5); Lymphocyte # 0.25 X10^3/ul (0.83-4.51); Mean Corpuscular Volume 90.8 fL (80-94); Mean Platelet Vol. 9.4 fl (6.2-12.0); Monocyte# 0.16 X10^3/uL; Monocyte% 4.5 % (0-10); NRBC Flagged by Analyzer 0 % (0-5); Neutrophil # 3.08 X10^3/uL (2.7-7.7); Neutrophil % 86.2 % (47-70); POSITIVE DIFFERENTIAL YES; Platelet Count 127 K/mm3 (150-450); RBC Distribution Width CV 13.2 % (11.6-14.6); RBC Distribution Width SD 43.7 fl (35.1-43.9); Red Blood Count 3.47 M/mm3 (4.6-6.2); White Blood Count 3.6 K/mm3 (4.4-11.0)
[2022-08-25 15:38] LABS: Differential Indicated SCAN CRITERIA MET
[2022-08-25 15:47] LABS: Anion Gap 8 (5-15); BUN 14 mg/dL (7-18); BUN/Creat Ratio 17.8 RATIO (10-20); Calcium,Total 8.9 mg/dL (8.5-10.1); Chloride 92 mmol/L (98-107); Creatinine, Serum 0.79 mg/dL (0.70-1.30); EST Glomerular Filtration Rate 100 mL/min (>60); Est Glom Filt Rate - Afr Amer 122 mL/min (>60); Estimated Creatinine Clearance 58.81 ml/min; Glucose 93 mg/dL (74-106); Magnesium 2.1 mg/dL (1.6-2.6); Potassium 4.4 mmol/L (3.5-5.1); Sodium Level 125 mmol/L (136-145); Troponin-I HS (w/2H Reflex) 7 pg/mL (3.0-78.0)
[2022-08-25 15:53] LABS: Differential Comment SCANNED
--- NOTE | 2022-08-25 15:54 | HP.PCM_ITS ---
[facility] - General General Date of Admission: 08/25/22 Date of Service: 08/25/22 Chief Complaint: Bilateral upper extremity, face and neck swelling [facility] Narrative ELVIE DEGROOT, is a 82 M with a history of stage IV small cell lung cancer status post chemotherapy and immunotherapy. Patient presented to his oncologist office where he had presented today with a 1 week history of bilateral upper extremity swelling, face and neck swelling and upper mid back pain. Presented to [facility] where he had had a CT scan that showed markedly enlarged bilateral supraclavicular and mediastinal lymphadenopathy with extrinsic compression of the superior vena cava, hence his instruction to follow-up with his primary oncologist. He denies any chest pain or shortness of breath. [facility] Medical History Abdominal aneurysm Alcohol use Back pain Bilateral knee pain Cancer Cancer, metastatic to bone Cardiology follow-up encounter Confusion COPD (chronic obstructive pulmonary disease) Easy bruising Encounter for education Former smoker Gastric reflux Headache History of echocardiogram History of heart attack History of steroid therapy History of stress test Hx of back injury Hypertension Lung cancer Neuropathy of both feet Pulmonary embolism Syncope Wears dentures Wears glasses Home Medications albuterol sulfate 90 mcg/actuation aerosol inhaler 1 - 2 puff inhalation Q4H PRN PRN Sob &/Or Wheezing 12/07/18 [History Last Taken 08/25/22] aspirin 81 mg tablet,delayed release 81 mg PO DAILY 12/07/18 [History Last Taken 08/25/22] atenolol 25 mg tablet 25 mg PO DAILY 12/07/18 [History Last Taken 08/25/22] budesonide-formoterol HFA 160 mcg-4.5 mcg/actuation aerosol inhaler 2 puff inhalation BID 12/07/18 [History Last Taken 08/25/22] losartan 50 mg tablet 50 mg PO DAILY 12/07/18 [History Last Taken 08/25/22] rosuvastatin 40 mg tablet 40 mg PO DAILY 12/07/18 [History Last Taken 08/25/22] ipratropium bromide 0.02 % solution for inhalation 0.5 mg inhalation BID 12/12/21 [History Last Taken 08/25/22] tumeric 100 mg-latasha 150 mg-olive 50 mg-oreg 150 mg-caprylate capsule 1 cap PO DAILY SUPPLEMENT 07/29/22 [History Last Taken 08/25/22] apixaban 5 mg tablet (Eliquis) 5 mg PO BID BLOOD THINNER 08/25/22 [History Last Taken 08/25/22] pantoprazole 20 mg tablet,delayed release 20 mg PO DAILY 08/25/22 [History Last Taken 08/25/22] sodium chloride 1,000 mg soluble tablet 1,000 mg PO DAILY SUPPLEMENT 08/25/22 [History Last Taken 08/25/22] vitamin B complex 1 tab PO DAILY SUPPLEMENT 08/25/22 [History Last Taken 08/25/22] Allergy/AdvReac Type Severity Reaction Status Date / Time Penicillins Allergy Intermediate Unknown Verified 08/25/22 15:54 Family History Mother Cancer lung Father Heart disease CVA (cerebral vascular accident) Brother Heart disease Sister Colon cancer Surgical History History of cardiac catheterization Hx of colonoscopy Hx of heart artery stent Hx of heart bypass surgery Hx of hernia repair Hx of knee surgery Hx of left cataract extraction Hx of right cataract extraction Hx of total knee replacement Social History Smoking Status: Former smoker Tobacco: How many years used: 40 how long ago did patient quit smokin years ROS ROS Narrative Denies any chest pain or shortness of breath. Did not report any nausea vomiting or abdominal pain. All other systems reviewed and essentially negative or as above in the body of the history. Vital Signs Vital Signs Vital Signs: 08/25/22 14:06 08/25/22 14:27 08/25/22 15:27 Temperature 36.3 C L Temperature Source Temporal Pulse Rate 73 Respiratory Rate 18 Respiratory Pattern Normal Blood Pressure 159/90 H Blood Pressure Mean 113 Pulse Ox 99 Oxygen Delivery Method Room Air Room Air 08/25/22 15:29 Temperature 36.1 C L Temperature Source Temporal Pulse Rate 81 Respiratory Rate 25 H Respiratory Pattern Blood Pressure 178/82 H Blood Pressure Mean 114 Pulse Ox 94 Oxygen Delivery Method Room Air Weight Weight: 97.7 kg Body Mass Index (BMI) 30.8 Physical Exam Narrative General exam. Elderly man who does not appear his stated age, not in any overt distress, not particularly ill looking HEENT. There is facial plethora, mild facial swelling. Neck. Distended engorged neck veins, supraclavicular puffiness. Heart. Physical sounds heard no murmurs Lungs. Clear to auscultation except in the left lung base with Fine Crackles. Abdomen. Obese and Moves with Respiration Extremities. No Pedal Edema. 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 Conscious alert and oriented x3. Cranial nerves II to XII grossly intact. All other organ systems examined and essentially without any significant abnormalities. Results Lab / Micro Data Result Diagrams: 08/25/22 15:12 08/25/22 15:12 Labs: Laboratory Results - last 24 hr 08/25/22 15:12: WBC 3.6 L, RBC 3.47 L, Hgb 10.4 L, Hct 31.5 L, MCV 90.8, MCH 30.0, MCHC 33.0, RDW Std Deviation 43.7, RDW Coeff of Priti 13.2, Plt Count 127 L, MPV 9.4, Immature Gran % (Auto) 0.600, Neut % (Auto) 86.2 H, Lymph % (Auto) 7.0 L, [place] % (Auto) 4.5, Eos % (Auto) 1.1, Baso % (Auto) 0.6, Absolute Neuts (auto) 3.1, Absolute Lymphs (auto) 0.25 L, Nucleated RBC % 0, Differential Comment SCANNED, Diff Path Review July08/25/22 15:12: Sodium 125 L, Potassium 4.4, Chloride 92 L, Carbon Dioxide 25.0, Anion Gap 8, BUN 14, Creatinine 0.79, Estim Creat Clear Calc 58.81, Est GFR (MDRD) Af Amer 122, Est GFR (MDRD) Non-Af 100, BUN/Creatinine Ratio 17.8, Glucose 93, Calcium 8.9, Magnesium 2.1, Troponin I High Sens 7 Assessment & Plan Assessment/Plan (1) Superior vena cava compression syndrome: PLAN: Plan 1. 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 Was seen by oncology in the office. Started on IV Decadron and will continue with 4 mg every 6 hours. Oncology recommending consulting radiation oncology for radiation treatment. Keep head of bed elevated at 45 to 60 degrees. Monitor for hyperglycemia while on steroids. Ulcer prophylaxis with pantoprazole 40 mg twice a day. 2. 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 Not new for patient and patient has been treated with Tolvaptan in the past. Currently on sodium chloride 1 g daily. Will increase this to twice a day. Consult nephrology. 3. Mild pancytopenia. Related to cancer and treatment of the same. Charges/Coding Visit Charges Inpatient E&M: 84108 Init Hosp L3
[2022-08-25 15:59] LABS: BNP,B-Type NATRIURETIC PEPTIDE 78.7 pg/mL (0-100)
[2022-08-25 16:24] VITALS: BMI 27.3
[2022-08-25 16:38] VITALS: BP 161/74; PULSE 84; RESP 22; TEMP 36.9; O2SAT 92
[2022-08-25] MEDS: Pantoprazole Sodium 40 MG Tablet PO ×2 (17:10→21:16)
[2022-08-25] MEDS: Sodium Chloride 1 GM Tablet PO (17:10)
[2022-08-25 17:16] LABS: Reflex Troponin-HS? (from REC) Y
[2022-08-25] MEDS: dexAMETHasone 4 MG/ML Vial IV (17:45)
[2022-08-25] MEDS: Acetaminophen 500 MG Tablet 1000 MG PO (17:45)
[2022-08-25 18:21] LABS: Troponin-I HS 7 pg/mL (3.0-78.0)
[2022-08-25] MEDS: oxyCODONE 5 MG Tablet PO (18:48)
[2022-08-25] MEDS: Ipratropium/Albuterol Sulfate 3 ML AMPUL.NEB INHALATION (19:31)
[2022-08-25] MEDS: Budesonide Respules 0.5 MG/2 ML AMPUL.NEB. INHALATION (19:31)
[2022-08-25 20:59] VITALS: BP 146/76; PULSE 99; RESP 16; TEMP 36.6; O2SAT 94
[2022-08-25] MEDS: APIXABAN 5 MG TABLET PO (21:16)
[2022-08-26] VITALS (9 sets, daily range): BP systolic 122–149; BP diastolic 59–108; PULSE 74–105; RESP 16–20; TEMP 36.4–36.9; O2SAT 93–96
[2022-08-26] MEDS: dexAMETHasone 4 MG/ML Vial IV ×5 (00:18→23:51)
[2022-08-26] MEDS: Acetaminophen 500 MG Tablet 1000 MG PO ×3 (00:21→17:19)
[2022-08-26] MEDS: 0.9% Normal Saline 1,000 ML 150 ML IV ×4 (03:26→23:49)
[2022-08-26 06:11] LABS: Absolute Lymphocyte Count 0.28 X10^3/uL (0.83-4.51); Absolute Neutrophil Count 3.6 X10^3/uL (2.0-7.7); Hematocrit 33.1 % (40-54); Hemoglobin 10.9 g/dL (13.0-16.5); Lymphocyte # 0.28 X10^3/ul (0.83-4.51); Lymphocyte % 7.1 % (19-41); Mean Corp Hgb Conc 32.9 g/dL (32-36); Mean Corpuscular Hgb 29.7 pg (27.0-32.0); Mean Corpuscular Volume 90.2 fL (80-94); Mean Platelet Vol. 8.8 fl (6.2-12.0); Monocyte# 0.06 X10^3/uL; Monocyte% 1.5 % (0-10); NRBC Flagged by Analyzer 0 % (0-5); Neutrophil # 3.58 X10^3/uL (2.7-7.7); Neutrophil % 90.9 % (47-70); POSITIVE DIFFERENTIAL YES; Platelet Count 137 K/mm3 (150-450); RBC Distribution Width SD 42.9 fl (35.1-43.9); Red Blood Count 3.67 M/mm3 (4.6-6.2); White Blood Count 3.9 K/mm3 (4.4-11.0)
[2022-08-26 06:12] LABS: Differential Indicated SCAN CRITERIA MET
[2022-08-26 06:59] LABS: ALB/GLOB Ratio 1.1 RATIO (0.9-2.4); AST(SGOT) 56 U/L (15-37); Alanine Aminotransfer ALT/SGPT 52 U/L (16-61); Albumin, Serum 3.5 g/dL (3.2-5.0); Alkaline Phosphatase 69 U/L (45-117); Anion Gap 7 (5-15); BUN 13 mg/dL (7-18); BUN/Creat Ratio 14.1 RATIO (10-20); Calcium,Total 8.8 mg/dL (8.5-10.1); Chloride 100 mmol/L (98-107); Creatinine, Serum 0.92 mg/dL (0.70-1.30); EST Glomerular Filtration Rate 84 mL/min (>60); Est Glom Filt Rate - Afr Amer 101 mL/min (>60); Estimated Creatinine Clearance 63.92 ml/min; Globulin 3.1 g/dL (2.2-4.2); Glucose 130 mg/dL (74-106); Phosphorus 2.6 mg/dL (2.5-4.9); Potassium 4.1 mmol/L (3.5-5.1); Protein, Total 6.6 g/dL (6.4-8.2); Sodium Level 132 mmol/L (136-145)
--- NOTE | 2022-08-26 07:05 | PCM.PN.HOSP ---
Reason for Visit Reason for Visit: Diagnoses Compression of vein (08/25/22) Subjective Subjective Patient since admission with significant improvement with decreased swelling to the bilateral upper extremity, neck and facial region. Discussed plan of care with radiation oncology with intention for start on radiation today 2/3 pm and perform daily until discharge with plan then for follow-up outpatient for decision for next chemotherapeutic plan of care. Patient states the evening prior he can barely even sleep secondary to such stiffness from the severity of the swelling but today he is able to move his neck and his extremities. Patient denies fevers, chills, nausea, emesis, abdominal pain, chest pain or dyspnea. Objective Data Objective Data Vital Signs: Vital Signs Temp Pulse Resp BP Pulse Ox O2 Del Method 98.4 F 91 16 127/59 H 95 Room Air 08/26/22 03:20 08/26/22 03:20 08/26/22 03:20 08/26/22 03:20 08/26/22 03:20 08/26/22 03:20 Oxygen Delivery Method Room Air Weight: 191 lb Body Mass Index (BMI) 27.3 Intake & Output: Intake and Output for Last 24 Hours 08/24/22 08/25/22 08/26/22 23:59 23:59 23:59 Intake Total 1032.5 / 1532.5 1517.5 / 1517.5 Output Total 1125 / 1125 Balance 1032.5 / 1532.5 392.5 / 392.5 Lab / Micro Data Result Diagrams: 08/26/22 06:00 08/26/22 06:00 Labs: Laboratory Results - last 24 hr 08/25/22 15:12: WBC 3.6 L, RBC 3.47 L, Hgb 10.4 L, Hct 31.5 L, MCV 90.8, MCH 30.0, MCHC 33.0, RDW Std Deviation 43.7, RDW Coeff of Priti 13.2, Plt Count 127 L, MPV 9.4, Immature Gran % (Auto) 0.600, Neut % (Auto) 86.2 H, Lymph % (Auto) 7.0 L, Anderson % (Auto) 4.5, Eos % (Auto) 1.1, Baso % (Auto) 0.6, Absolute Neuts (auto) 3.1, Absolute Lymphs (auto) 0.25 L, Nucleated RBC % 0, Differential Comment SCANNED, Diff Path Review July [facility] 08/25/22 15:12: Sodium 125 L, Potassium 4.4, Chloride 92 L, Carbon Dioxide 25.0, Anion Gap 8, BUN 14, Creatinine 0.79, Estim Creat Clear Calc 58.81, Est GFR (MDRD) Af Amer 122, Est GFR (MDRD) Non-Af 100, BUN/Creatinine Ratio 17.8, Glucose 93, Calcium 8.9, Magnesium 2.1, Troponin I High Sens 7 08/25/22 15:12: B-Natriuretic Peptide 78.7 08/25/22 17:39: Troponin I High Sens 7 08/26/22 06:00: WBC 3.9 L, RBC 3.67 L, Hgb 10.9 L, Hct 33.1 L, MCV 90.2, MCH 29.7, MCHC 32.9, RDW Std Deviation 42.9, RDW Coeff of Priti 13.0, Plt Count 137 L, MPV 8.8, Immature Gran % (Auto) 0.500, Neut % (Auto) 90.9 H, Lymph % (Auto) 7.1 L, Anderson % (Auto) 1.5, Eos % (Auto) 0.0, Baso % (Auto) 0.0, Absolute Neuts (auto) 3.6, Absolute Lymphs (auto) 0.28 L, Nucleated RBC % 0, Diff Path Review July [facility] 08/26/22 06:00: Sodium 132 L, Potassium 4.1, Chloride 100, Carbon Dioxide 25.0, Anion Gap 7, BUN 13, Creatinine 0.92, Estim Creat Clear Calc 63.92, Est GFR (MDRD) Af Amer 101, Est GFR (MDRD) Non-Af 84, BUN/Creatinine Ratio 14.1, Glucose 130 H, Calcium 8.8, Phosphorus 2.6, Total Bilirubin 0.60, AST 56 H, ALT 52, Alkaline Phosphatase 69, Total Protein 6.6, Albumin 3.5, Globulin 3.1, Albumin/Globulin Ratio 1.1 Radiography Diagnostic Testing: Radiology Impression Chest X-Ray 08/25/22 15:30 IMPRESSION: Hazy infiltrate right lower lung field suspicious for infection. Possible right suprahilar adenopathy. Electronically Signed: Singh Downey MD at 16:38 EDT , Physical Exam Narrative Physical Examination: General: Awake, alert, oriented x 3 and cooperative, seated upright in the medical surgical bed, from discussions with staff and patient he is significantly improved from initial presentation, markedly less edematous Skin: Diffusely flushed color, normal turgor, no icterus, no cyanosis. HEENT: AT/NC, EOMI, PERRLA, MMM, previous reports of significant neck and upper extremity swelling significantly improved, able to move neck about and neck folds are visible. Lungs: Diminished, distant, greater bases, proper effort, no rales, ronchi or wheezing. Heart: Currently regular rate and rhythm; no gallop, rub audible. Abdomen: Soft, NTTP, ND, normal BS. Extremities: No cyanosis, no clubbing, previously reported significant upper extremity edema has lessened, able to see skin folds. Neurological: Patient awake, alert, oriented x 3, cognitive function intact; pupils equally reactive to light and accommodation, cranial nerves II-XII grossly normal, moving all 4 extremities, no focal deficits, strength improving, moderately globally decreased. Psychiatric: Affect appears fatigued otherwise normal, no acute evidence of depressive or anxiety feelings. Assessment & Plan Assessment/Plan (1) Superior vena cava compression syndrome: PLAN: Plan The patient is an 82 y/o M w/ PMHx: Former tobacco use, AAA s/p repair, CAD s/p CABG, HTN, HLD, GERD, Hx VTE (DVT, PE), Chronic BL LE Neuropathy, COPD, Chronic Hyponatremia secondary to SIADH on NaChl tablets/Tolvaptan prior, Chronic pancytopenia secondary to underlying CA/treatment, SCLC stage IV or extensive disease who presents to the [facility] on 08/25/22 secondary to history of onset head/neck edema starting on Wednesday with OSH CT Head/Neck c/w SVC syndrome prompting transition to [facility] for radiation therapy, continued steroids. #1. Superior Vena Cava Syndrome: CT neck and chest showed compression of the superior vena cava, mediastinal adenopathy, 2.3 cm right lower lobe nodule, bilateral supraclavicular adenopathy. Admitted to [facility], maintained on IV decadron 4 mg IV q 6 pending radiation with plan to taper off following, Oncology consulted, awaiting as noted radiation treatment with plan following to transition back to chemotherapy to be arranged outpatient. #2. 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 Started Imfinzi maintenance on 04/08/2022, finished C9 on 07/29/2022. Complicated by onset swelling to the head and neck starting Wednesday with CT neck and chest c/w compression SVC w/ medial stainal adenopathy. #3. Chronic pancytopenia: Admission CBC with WBC 3.6, hemoglobin 10.4, MCV 98.8, platelet 127 with lymphopenia->08/26/2022 CBC with WBC 3.9, hemoglobin 10.9, MCV 90.2, platelet 137, secondary to underlying CA and treatments, continue to trend. #4. Chronic hyponatremia with underlying SIADH: Admission sodium 125, previous baseline noted 130-140s on chronic salt tablets, doubled upon admission with nephrology consulted and pending, 08/26/22 Na 132. Nephrology consulted upon admission, pending. #5. CAD: Status post PCI and CABG, continue patient home aspirin, apixaban, atenolol, losartan home regimen. #6. Chronic COPD: We will temporally hold home inhaler and in the interim transition to ATC budesonide therapy, PRN albuterol, HOB, IS parameters. #7. Hypertension: Continue home regimen including atenolol, losartan, PRN hydralazine. #8. Hyperlipidemia: We will continue patient on statin therapy. #9. GERD: We will continue patient on PPI. #10. History VTE: Patient status post DVT, PE, continue patient home Eliquis regimen. Most recent noted distal DVT L leg 04/08/2022. #11. History AAA: Status postrepair #12. Former tobacco use: Encourage continued tobacco cessation. #13. DVT prophylaxis: Continue patient home Eliquis regimen. #14. CODE status: Full Code. Admission Evaluation Time spent evaluating chart, patient history, patient evaluation, care planning and discussion with specialists: 35 minutes. Charges/Coding Visit Charges Inpatient E&M: 94147 Subs Hosp L2
[2022-08-26] MEDS: Ipratropium/Albuterol Sulfate 3 ML AMPUL.NEB INHALATION ×3 (07:16→19:20)
[2022-08-26] MEDS: Budesonide Respules 0.5 MG/2 ML AMPUL.NEB. INHALATION ×2 (07:17→19:20)
[2022-08-26] MEDS: Losartan Potassium 50 MG Tablet PO (09:17)
[2022-08-26] MEDS: Vitamin B Comp W-C Capsule 1 CAP PO (09:17)
[2022-08-26] MEDS: Pantoprazole Sodium 40 MG Tablet PO ×2 (09:18→21:51)
[2022-08-26] MEDS: Atorvastatin Calcium 80 MG Tablet PO (09:18)
[2022-08-26] MEDS: Atenolol 25 MG Tablet PO (09:18)
[2022-08-26] MEDS: Aspirin E.C. 81 MG Tablet PO (09:18)
[2022-08-26] MEDS: APIXABAN 5 MG TABLET PO ×2 (09:18→21:52)
[2022-08-26] MEDS: Sodium Chloride 1 GM Tablet PO ×2 (09:18→21:51)
--- NOTE | 2022-08-26 13:10 | CASEMGMT ---
RN?CM?LOAD MIXER?CM?to room to meet with patient for initial transition planning/care coordination?assessment.?RN?CM?introduced self and role at [facility].? Pt voices understanding and consents to?assessment?at this time.? Pt sitting up in chair in room in no distress at this time.? and granddaughter present in room and pt agreeable to them being present during assessment. Pt is A/O at this time and answers all questions appropriately.?? Care providers, pharmacy, and demographics verified/updated at this time. PCP: Dr Ayala Specialists: Dr Montana/Aracely Parisi, INSTALLATION SERVICE REPRESENTATIVE-oncology. Dr Goncalves-radiation oncologist. Dr Thomas-computer equipment installer in [place]. Dr Resendez-it risk and assurance manager @ [facility]. Preferred Pharmacy: [facility] Insurance: MCR, [employer] Prescription Benefit:?Yes Living Will/HPOA:?Has LW and HCPOA, who is his LNOK: , Deisy. Living Arrangements: Lives w/his in one-story home w/basement. One step to enter through back entrance. 2 steps through front. Pt is indep w/ADL's. does most home mgnt tasks. Transportation:?Pt states drives self and states no transportation concerns at this time.? also drives. DME: States has the following DME:?built-in shower chair, cane (uses on occasion), pulse ox, grab bars, nebulizer ?Pt and state no need for further DME at this time.? HHC/SNF: No hx of SNF. Has had HHC in the past after CABG. Pt declines need for HHC or OP therapy. Pt wishes to return home and states has no concerns with going home at time of discharge.? CM?to follow for any discharge planning/needs.? Pt and voice no concerns/needs at this time.? Advised them to ask for?CM?if any questions/concerns/needs arise.? They voice understanding. PLAN:??Home w/spousal support and discharge plans in place. Kimberly MARQUEZN?RN?CM
--- NOTE | 2022-08-26 15:02 | PCM.CONS.R ---
Assessment & Plan Assessment/Plan (1) Hyponatremia: PLAN: initially was diagnosed with hyponatremia related to malignancy. Required a few doses of tolvaptan. Recently sodium is within normal limits. Presented this time with a sodium of 125. However sodium has already improved to 132 with IV fluids alone. It's possible hyponatremia is hypovolemia related. Since sodium has improved significantly, no further workup needed. Will monitor sodium values for now. Small cell carcinoma, SVC syndrome. Starting radiation treatments HPI Consult Data Date of Consult: 08/26/22 HPI Narrative Reason for Consultation: Hyponatremia HPI Narrative: ELVIE DEGROOT, is a 82 M who presents To the hospital with SVC syndrome, hyponatremia. 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 This was fairly extensive with metastases to the spine, hip. He initially received treatment with cisplatin, etoposide, Imfimzi. Currently on maintenance immunotherapy alone. Presented to ER with progressively worsening facial edema. CT chest, neck consistent with SVC syndrome. Started on radiation treatment, first treatment today. Nephrology consultation requested for hyponatremia. It seems he initially had hyponatremia at the time of diagnosis, subsequently sodium has been normal. This time he presented with a sodium of 125. Seems to be better at 132 today. Says her appetite has been poor. No lower extremity edema. [facility] Medical History AAA (abdominal aortic aneurysm) Abdominal aneurysm Alcohol use Anxiety Back pain Bilateral knee pain Cancer Cancer, metastatic to bone Cardiology follow-up encounter Confusion COPD (chronic obstructive pulmonary disease) Easy bruising Encounter for education Former smoker Gastric reflux GERD (gastroesophageal reflux disease) Headache History of echocardiogram History of heart attack History of steroid therapy History of stress test Hx of back injury Hypertension Lung cancer Neuropathy of both feet Pulmonary embolism Syncope Wears dentures Wears glasses Home Medications albuterol sulfate 90 mcg/actuation aerosol inhaler 1 - 2 puff inhalation Q4H PRN PRN Sob &/Or Wheezing 12/07/18 [History Last Taken 08/25/22] aspirin 81 mg tablet,delayed release 81 mg PO DAILY 12/07/18 [History Last Taken 08/25/22] atenolol 25 mg tablet 25 mg PO DAILY 12/07/18 [History Last Taken 08/25/22] budesonide-formoterol HFA 160 mcg-4.5 mcg/actuation aerosol inhaler 2 puff inhalation BID 12/07/18 [History Last Taken 08/25/22] losartan 50 mg tablet 50 mg PO DAILY 12/07/18 [History Last Taken 08/25/22] rosuvastatin 40 mg tablet 40 mg PO DAILY 12/07/18 [History Last Taken 08/25/22] ipratropium bromide 0.02 % solution for inhalation 0.5 mg inhalation BID 12/12/21 [History Last Taken 08/25/22] tumeric 100 mg-latasha 150 mg-olive 50 mg-oreg 150 mg-caprylate capsule 1 cap PO DAILY SUPPLEMENT 07/29/22 [History Last Taken 08/25/22] apixaban 5 mg tablet (Eliquis) 5 mg PO BID BLOOD THINNER 08/25/22 [History Last Taken 08/25/22] pantoprazole 20 mg tablet,delayed release 20 mg PO DAILY 08/25/22 [History Last Taken 08/25/22] sodium chloride 1,000 mg soluble tablet 1,000 mg PO DAILY SUPPLEMENT 08/25/22 [History Last Taken 08/25/22] vitamin B complex 1 tab PO DAILY SUPPLEMENT 08/25/22 [History Last Taken 08/25/22] Allergy/AdvReac Type Severity Reaction Status Date / Time Penicillins Allergy Intermediate Unknown Verified 08/26/22 12:02 Family History Mother Cancer lung Father Heart disease CVA (cerebral vascular accident) Brother Heart disease Sister Colon cancer Surgical History History of AAA (abdominal aortic aneurysm) repair History of cardiac catheterization Hx of colonoscopy Hx of heart artery stent Hx of heart bypass surgery Hx of hernia repair Hx of knee surgery Hx of left cataract extraction Hx of right cataract extraction Hx of total knee replacement Social History Smoking Status: Former smoker Tobacco: How many years used: 40 how long ago did patient quit smokin years ROS ROS Narrative negative except above Physical Exam Narrative Alert awake oriented x 3 no obvious distress no pallor no icterus no JVD s1s2 no murmurs lungs clear abdomen soft no organomegaly no edema no cyanosis Lab / Micro Data Result Diagrams: 08/26/22 06:00 08/26/22 06:00 Labs: Laboratory Results - last 24 hr 08/25/22 15:12: WBC 3.6 L, RBC 3.47 L, Hgb 10.4 L, Hct 31.5 L, MCV 90.8, MCH 30.0, MCHC 33.0, RDW Std Deviation 43.7, RDW Coeff of Priti 13.2, Plt Count 127 L, MPV 9.4, Immature Gran % (Auto) 0.600, Neut % (Auto) 86.2 H, Lymph % (Auto) 7.0 L, [place] % (Auto) 4.5, Eos % (Auto) 1.1, Baso % (Auto) 0.6, Absolute Neuts (auto) 3.1, Absolute Lymphs (auto) 0.25 L, Nucleated RBC % 0, Differential Comment SCANNED, Diff Path Review July [facility] 08/25/22 15:12: Sodium 125 L, Potassium 4.4, Chloride 92 L, Carbon Dioxide 25.0, Anion Gap 8, BUN 14, Creatinine 0.79, Estim Creat Clear Calc 58.81, Est GFR (MDRD) Af Amer 122, Est GFR (MDRD) Non-Af 100, BUN/Creatinine Ratio 17.8, Glucose 93, Calcium 8.9, Magnesium 2.1, Troponin I High Sens 7 08/25/22 15:12: B-Natriuretic Peptide 78.7 08/25/22 17:39: Troponin I High Sens 7 08/26/22 06:00: WBC 3.9 L, RBC 3.67 L, Hgb 10.9 L, Hct 33.1 L, MCV 90.2, MCH 29.7, MCHC 32.9, RDW Std Deviation 42.9, RDW Coeff of Priti 13.0, Plt Count 137 L, MPV 8.8, Immature Gran % (Auto) 0.500, Neut % (Auto) 90.9 H, Lymph % (Auto) 7.1 L, [place] % (Auto) 1.5, Eos % (Auto) 0.0, Baso % (Auto) 0.0, Absolute Neuts (auto) 3.6, Absolute Lymphs (auto) 0.28 L, Nucleated RBC % 0, Diff Path Review July [facility] 08/26/22 06:00: Sodium 132 L, Potassium 4.1, Chloride 100, Carbon Dioxide 25.0, Anion Gap 7, BUN 13, Creatinine 0.92, Estim Creat Clear Calc 63.92, Est GFR (MDRD) Af Amer 101, Est GFR (MDRD) Non-Af 84, BUN/Creatinine Ratio 14.1, Glucose 130 H, Calcium 8.8, Phosphorus 2.6, Total Bilirubin 0.60, AST 56 H, ALT 52, Alkaline Phosphatase 69, Total Protein 6.6, Albumin 3.5, Globulin 3.1, Albumin/Globulin Ratio 1.1 Radiology Impression Chest X-Ray 08/25/22 15:30 IMPRESSION: Hazy infiltrate right lower lung field suspicious for infection. Possible right suprahilar adenopathy. Electronically Signed: Singh Downey MD at 16:38 EDT ,
[2022-08-27] MEDS: Acetaminophen 500 MG Tablet 1000 MG PO ×2 (01:32→08:51)
[2022-08-27 02:53] VITALS: BP 161/67; PULSE 87; RESP 16; TEMP 36.8; O2SAT 94
[2022-08-27] MEDS: dexAMETHasone 4 MG/ML Vial IV ×2 (05:03→12:09)
[2022-08-27 05:17] VITALS: BP 147/83
[2022-08-27 05:43] LABS: Absolute Lymphocyte Count 0.28 X10^3/uL (0.83-4.51); Absolute Neutrophil Count 7.5 X10^3/uL (2.0-7.7); Basophil# 0.01 X10^3/uL; Basophil% 0.1 % (0-1); Hematocrit 31.6 % (40-54); Hemoglobin 10.3 g/dL (13.0-16.5); Lymphocyte # 0.28 X10^3/ul (0.83-4.51); Lymphocyte % 3.4 % (19-41); Mean Corp Hgb Conc 32.6 g/dL (32-36); Mean Corpuscular Hgb 29.4 pg (27.0-32.0); Mean Corpuscular Volume 90.3 fL (80-94); Monocyte# 0.41 X10^3/uL; NRBC Flagged by Analyzer 0 % (0-5); Neutrophil # 7.54 X10^3/uL (2.7-7.7); POSITIVE DIFFERENTIAL YES; Platelet Count 163 K/mm3 (150-450); RBC Distribution Width CV 13.5 % (11.6-14.6); RBC Distribution Width SD 44.4 fl (35.1-43.9); White Blood Count 8.3 K/mm3 (4.4-11.0)
[2022-08-27 06:00] LABS: Differential Indicated SCAN CRITERIA MET
[2022-08-27 06:03] LABS: ALB/GLOB Ratio 1.2 RATIO (0.9-2.4); AST(SGOT) 56 U/L (15-37); Alanine Aminotransfer ALT/SGPT 56 U/L (16-61); Albumin, Serum 3.6 g/dL (3.2-5.0); Alkaline Phosphatase 64 U/L (45-117); Anion Gap 8 (5-15); BUN 17 mg/dL (7-18); BUN/Creat Ratio 17.3 RATIO (10-20); Calcium,Total 8.6 mg/dL (8.5-10.1); Chloride 106 mmol/L (98-107); Creatinine, Serum 0.98 mg/dL (0.70-1.30); EST Glomerular Filtration Rate 78 mL/min (>60); Est Glom Filt Rate - Afr Amer 94 mL/min (>60); Estimated Creatinine Clearance 60.01 ml/min; Globulin 2.9 g/dL (2.2-4.2); Glucose 122 mg/dL (74-106); Magnesium 2.3 mg/dL (1.6-2.6); Phosphorus 2.4 mg/dL (2.5-4.9); Potassium 4.2 mmol/L (3.5-5.1); Protein, Total 6.5 g/dL (6.4-8.2); Sodium Level 137 mmol/L (136-145)
[2022-08-27] MEDS: 0.9% Normal Saline 1,000 ML 150 ML IV (06:03)
[2022-08-27] MEDS: Ipratropium/Albuterol Sulfate 3 ML AMPUL.NEB INHALATION ×2 (07:18→13:33)
[2022-08-27] MEDS: Budesonide Respules 0.5 MG/2 ML AMPUL.NEB. INHALATION (07:19)
[2022-08-27 07:20] VITALS: PULSE 81; RESP 19
[2022-08-27 07:59] VITALS: O2SAT 95
[2022-08-27 08:42] VITALS: BP 166/80; PULSE 94; RESP 18; TEMP 36.2; O2SAT 96
[2022-08-27] MEDS: Losartan Potassium 50 MG Tablet PO (08:51)
[2022-08-27] MEDS: Atorvastatin Calcium 80 MG Tablet PO (08:51)
[2022-08-27] MEDS: Aspirin E.C. 81 MG Tablet PO (08:51)
[2022-08-27] MEDS: Vitamin B Comp W-C Capsule 1 CAP PO (08:51)
[2022-08-27] MEDS: APIXABAN 5 MG TABLET PO (08:51)
[2022-08-27] MEDS: Atenolol 25 MG Tablet PO (08:52)
[2022-08-27] MEDS: Pantoprazole Sodium 40 MG Tablet PO (08:52)
[2022-08-27] MEDS: Sodium Chloride 1 GM Tablet PO (08:52)
--- NOTE | 2022-08-27 09:15 | PCM.PN.HOSP ---
Reason for Visit Reason for Visit: Diagnoses Hypo-osmolality and hyponatremia (08/25/22) Compression of vein (08/25/22) Objective Data Objective Data Vital Signs: Vital Signs Temp Pulse Resp BP Pulse Ox O2 Del Method 97.2 F L 94 18 166/80 H 96 Room Air 08/27/22 08:42 08/27/22 08:42 08/27/22 08:42 08/27/22 08:42 08/27/22 08:42 08/27/22 08:46 Oxygen Delivery Method Room Air Weight: 86.636 kg Body Mass Index (BMI) 27.3 Intake & Output: Intake and Output for Last 24 Hours 08/25/22 08/26/22 08/27/22 23:59 23:59 23:59 Intake Total 1032.5 / 1532.5 4367.5 / 4567.5 1730 / 1730 Output Total 1125 / 1125 Balance 1032.5 / 1532.5 3242.5 / 3442.5 1730 / 1730 Lab / Micro Data Result Diagrams: 08/27/22 04:57 08/27/22 04:57 Labs: Laboratory Results - last 24 hr 08/27/22 04:57: WBC 8.3, RBC 3.50 L, Hgb 10.3 L, Hct 31.6 L, MCV 90.3, MCH 29.4, MCHC 32.6, RDW Std Deviation 44.4 H, RDW Coeff of Priti 13.5, Plt Count 163, MPV 9.0, Immature Gran % (Auto) 0.500, Neut % (Auto) 91.0 H, Lymph % (Auto) 3.4 L, [place] % (Auto) 5.0, Eos % (Auto) 0.0, Baso % (Auto) 0.1, Absolute Neuts (auto) 7.5, Absolute Lymphs (auto) 0.28 L, Nucleated RBC % 0 08/27/22 04:57: Sodium 137, Potassium 4.2, Chloride 106, Carbon Dioxide 23.0, Anion Gap 8, BUN 17, Creatinine 0.98, Estim Creat Clear Calc 60.01, Est GFR (MDRD) Af Amer 94, Est GFR (MDRD) Non-Af 78, BUN/Creatinine Ratio 17.3, Glucose 122 H, Calcium 8.6, Phosphorus 2.4 L, Magnesium 2.3, Total Bilirubin 0.40, AST 56 H, ALT 56, Alkaline Phosphatase 64, Total Protein 6.5, Albumin 3.6, Globulin 2.9, Albumin/Globulin Ratio 1.2 Assessment & Plan Assessment/Plan (1) Superior vena cava compression syndrome: PLAN: Plan #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 Started Imfinzi maintenance on 04/08/2022, finished C9 on 07/29/2022. Complicated by onset swelling to the head and neck starting Wednesday with CT neck and chest c/w compression SVC w/ medial stainal adenopathy -Presented with persistent face and arm swelling and erythema and was placed on Decadron -Evaluated by radiation oncology who recommended continuing treatment as planned with daily radiation starting 08/26 while admitted we will transition back to chemotherapy on outpatient basis #Hyponatremia on admission -Concerns as related to malignancy/SIADH -Has had several doses of tolvaptan and sodium improved -Had been evaluated by nephrology #Hx CAD s/p CABG -Continue home medications #Hx dvt/PE -Continue Eliquis -Most recent noted distal DVT L leg 04/08/2022 #History of COPD -Continue nebs and budesonide #DVT ppx: Continue Eliquis Jessica Rodriguez MD Time spent in the patient's overall evaluation,decision-making process, review of diagnostic data, adjustment of management, discussion with other providers, nursing nursing and ancillary staff involved in patient's care documentation, [] Minutes
[2022-08-27 09:18] LABS: Pathologist Review Reviewed
[2022-08-27 09:19] LABS: Pathologist Review Reviewed
[2022-08-27 13:35] VITALS: PULSE 87; RESP 21
--- NOTE | 2022-08-27 15:05 | DCINST_ITS ---
Discharge Instructions Diet Discharge Diet: No restrictions Activity Discharge Activity: Return to Normal Activity Follow Up Care Test Results: Test results from this visit will be discussed in further detail at your follow- up appointment, if applicable. Discharge Plan Admission Admit Date/Time: 08/25/22 15:41 Primary Reason for Your Visit: Arm and face swelling Attending Provider: Jessica Rodriguez Primary Care Provider: Lilibeth Ayala Consulting Providers: Theresa Tello ; Matt Monroe ; Laurence Garber Instructions Patient Instructions: Cancer Tx Radiation Additional Instructions / Restrictions: DISCHARGE INSTRUCTIONS PLEASE READ *Please take this with you to your next doctors appointment* -Please follow-up with Dr. Montana upon discharge. Please continue to follow as scheduled or sooner if needed -Discussed with radiation oncology, you will take 4 mg of dexamethasone (steroid) one dose tonight and then twice daily for 3 days and then 4 mg daily until you see radiation oncology in the office next week at which time they will further taper/adjust dose as indicated -Please follow-up with radiation oncology upon discharge. You have an appointment with them next week, at that time they will further taper your dexamethasone. I will be important that you keep this appointment -Please continue your radiation treatments as previously scheduled, if you have any questions or problems regarding her treatments please contact your radiation oncology office -Please call your primary care provider's office upon discharge to schedule a hospital follow up within 1 week. -For any concerning signs or symptoms please call 911 or proceed to the nearest emergency department Discharge Orders/Prescriptions Prescriptions: New dexamethasone 4 mg tablet See Rx Instructions .ROUTE .COMPLEX Qty: 30 0RF Rx Instructions: Take 1 tab tonight and one tab twice daily for three more days then decrease to once daily until otherwise instructed by your radiation or cancer doctor. Continued ipratropium bromide 0.02 % solution 0.5 mg inhalation BID Label Comments: INHALE 1 VIAL IN NEBULIZER 4 TIMES DAILY NEEDED hfxaqjx-gfjp-feyfv-oreg-capryl 100 mg-150 mg- 50 mg-150 mg capsule 1 cap PO DAILY losartan 50 MG tablet 50 mg PO DAILY atenolol 25 MG tablet 25 mg PO DAILY aspirin 81 MG tablet,delayed release (DR/EC) 81 mg PO DAILY rosuvastatin 40 MG tablet 40 mg PO DAILY budesonide-formoterol 1 INHALER inhaler 2 puff inhalation BID albuterol sulfate 1 INHALER inhaler 1 - 2 puff inhalation Q4H PRN PRN (Reason: Sob &/Or Wheezing) pantoprazole 20 mg Tablet,Delayed Release (Dr/Ec) 20 mg PO DAILY vitamin B complex Tablet 1 tab PO DAILY sodium chloride 1,000 mg tablet,soluble 1,000 mg PO DAILY Eliquis 5 mg tablet 5 mg PO BID Rx Instructions: TAKE 1 TABLET BY MOUTH TWICE A DAY Referrals / Follow Up: Lilibeth Ayala MD [Primary Care Provider] - Within 1 Week Jason Montana MD [Med Staff - Active Staff] - See Referral Note (Please follow-up with your cancer doctor upon discharge) Jhonathan Goncalves DO [Med Staff - Active Staff] - See Referral Note (Please follow- up with your radiation oncologist next week as previously scheduled. If any questions or concerns please contact the office sooner) Disposition Disposition (needs filled in before D/C Order can be placed): Home, Self Care
--- NOTE | 2022-08-27 15:13 | DS.PCM_ITS ---
Providers Date of Admission: 08/25/22 Date of Discharge: 08/27/22 Primary Care Physician: Dr. 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 Started Imfinzi maintenance on 04/08/2022, finished C9 on 07/29/2022. 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 -Has had several doses of tolvaptan and sodium improved -Had been evaluated by nephrology #Hx CAD s/p CABG -Continue home medications #Hx dvt/PE -Continue Eliquis -Most recent noted distal DVT L leg 04/08/2022 #History of COPD -Continue nebs and budesonide Medications at Discharge Home Medications albuterol sulfate 90 mcg/actuation aerosol inhaler 1 - 2 puff inhalation Q4H PRN PRN Sob &/Or Wheezing 12/07/18 aspirin 81 mg tablet,delayed release 81 mg PO DAILY 12/07/18 atenolol 25 mg tablet 25 mg PO DAILY 12/07/18 budesonide-formoterol HFA 160 mcg-4.5 mcg/actuation aerosol inhaler 2 puff inhalation BID 12/07/18 losartan 50 mg tablet 50 mg PO DAILY 12/07/18 rosuvastatin 40 mg tablet 40 mg PO DAILY 12/07/18 ipratropium bromide 0.02 % solution for inhalation 0.5 mg inhalation BID 12/12/21 tumeric 100 mg-latasha 150 mg-olive 50 mg-oreg 150 mg-caprylate capsule 1 cap PO DAILY SUPPLEMENT 07/29/22 apixaban 5 mg tablet (Eliquis) 5 mg PO BID BLOOD THINNER 08/25/22 pantoprazole 20 mg tablet,delayed release 20 mg PO DAILY 08/25/22 sodium chloride 1,000 mg soluble tablet 1,000 mg PO DAILY SUPPLEMENT 08/25/22 vitamin B complex 1 tab PO DAILY SUPPLEMENT 08/25/22 dexamethasone 4 mg tablet See Rx Instructions .Route .COMPLEX #30 tabs 08/27/22 Hospital Course Procedures - (Radiation therapy for lung cancer) Summary of Care Provided Minutes Spent on Discharge: 40 Hospital Course: 82-year-old male with history of stage IV small cell lung cancer presented to [facility] 08/25/2022 due to increasing face and neck swelling after he was seen by his oncologist in the office. He had presented initially to [facility] and had a CT scan that showed markedly enlarged bilateral supraclavicular and mediastinal lymphadenopathy with intrinsic compression of the superior vena cava which is what led to the follow-up with his oncologist. From his oncologist office he was sent to the ED. he was started on IV Decadron and radiation oncology consulted he was started daily radiation 08/26. Patient improved symptomatically with IV Decadron as well as 2 radiation treatments. Plan for 10 radiation treatments overall excluding weekend and will follow with both oncology and radiation oncology upon discharge, further radiation in these follow-up appointments already scheduled. Discussed with patient's oncologist and subsequently the radiation oncologist. Radiation oncologist recommended Decadron be twice daily through the weekend and then once daily and that when he saw him in the office he could further taper just. On day of discharge patient feeling much better and tolerating radiation well. No acute complaints. Anxious for discharge home. Discharge instructions as follows: -Please follow-up with Dr. Montana upon discharge.? Please continue to follow as scheduled or sooner if needed -Discussed with radiation oncology, you will take 4 mg of dexamethasone (steroid) one dose tonight and then twice daily for 3 days and then 4 mg daily until you see radiation oncology in the office next week at which time they will further taper/adjust dose as indicated -Please follow-up with radiation oncology upon discharge.? You have an appointment with them next week, at that time they will further taper your dexamethasone.? I will be important that you keep this appointment -Please continue your radiation treatments as previously scheduled, if you have any questions or problems regarding her treatments please contact your radiation oncology office -Please call your primary care provider's office upon discharge to schedule a hospital follow up within 1 week. -For any concerning signs or symptoms please call 911 or proceed to the nearest emergency department Physical Exam Narrative General: Alert, answers most questions appropriately though perseverates at times, no apparent distress HEENT: Atraumatic, normocephalic Eyes: Anicteric, normal conjunctiva, extraocular movements grossly intact Neck: Supple Respiratory: No wheezes or rhonchi, somewhat diminished at the bases, normal respiratory effort Cardiovascular: Regular rate and rhythm GI: Soft, nontender, nondistended Extremities: No significant pitting edema Musculoskeletal: Moving all extremities Neuro: No overt focal neurological deficits Skin: No rashes appreciated Psych: Cooperative Weight / BMI Weight Weight: 86.636 kg Body Mass Index (BMI) 27.3 ABG / Lab / Microbiology Data Result Diagrams: 08/27/22 04:57 08/27/22 04:57 Laboratory: Laboratory Results - last 24 hr 08/25/22 15:12: Diff Path Review Reviewed 08/26/22 06:00: Diff Path Review Reviewed 08/27/22 04:57: WBC 8.3, RBC 3.50 L, Hgb 10.3 L, Hct 31.6 L, MCV 90.3, MCH 29.4, MCHC 32.6, RDW Std Deviation 44.4 H, RDW Coeff of Priti 13.5, Plt Count 163, MPV 9.0, Immature Gran % (Auto) 0.500, Neut % (Auto) 91.0 H, Lymph % (Auto) 3.4 L, Sullivan % (Auto) 5.0, Eos % (Auto) 0.0, Baso % (Auto) 0.1, Absolute Neuts (auto) 7.5, Absolute Lymphs (auto) 0.28 L, Nucleated RBC % 0 08/27/22 04:57: Sodium 137, Potassium 4.2, Chloride 106, Carbon Dioxide 23.0, Anion Gap 8, BUN 17, Creatinine 0.98, Estim Creat Clear Calc 60.01, Est GFR (MDRD) Af Amer 94, Est GFR (MDRD) Non-Af 78, BUN/Creatinine Ratio 17.3, Glucose 122 H, Calcium 8.6, Phosphorus 2.4 L, Magnesium 2.3, Total Bilirubin 0.40, AST 56 H, ALT 56, Alkaline Phosphatase 64, Total Protein 6.5, Albumin 3.6, Globulin 2.9, Albumin/Globulin Ratio 1.2 D/C Instructions Discharge Diet: No restrictions Meaningful Use Info Meaningful Use Diagnoses (Choose all that apply): None applicable Discharge Plan Admission Admit Date/Time: 08/25/22 15:41 Primary Reason for Your Visit: Arm and face swelling Attending Provider: Jessica Rodriguez Primary Care Provider: Lilibeth Ayala Consulting Providers: Theresa Tello ; Matt Monroe ; Laurence Garber Instructions Patient Instructions: Cancer Tx Radiation Additional Instructions / Restrictions: DISCHARGE INSTRUCTIONS PLEASE READ *Please take this with you to your next doctors appointment* -Please follow-up with Dr. Montana upon discharge. Please continue to follow as scheduled or sooner if needed -Discussed with radiation oncology, you will take 4 mg of dexamethasone (steroid) one dose tonight and then twice daily for 3 days and then 4 mg daily until you see radiation oncology in the office next week at which time they will further taper/adjust dose as indicated -Please follow-up with radiation oncology upon discharge. You have an appointment with them next week, at that time they will further taper your dexamethasone. I will be important that you keep this appointment -Please continue your radiation treatments as previously scheduled, if you have any questions or problems regarding her treatments please contact your radiation oncology office -Please call your primary care provider's office upon discharge to schedule a hospital follow up within 1 week. -For any concerning signs or symptoms please call 911 or proceed to the nearest emergency department Discharge Orders/Prescriptions Prescriptions: New dexamethasone 4 mg tablet See Rx Instructions .ROUTE .COMPLEX Qty: 30 0RF Rx Instructions: Take 1 tab tonight and one tab twice daily for three more days then decrease to once daily until otherwise instructed by your radiation or cancer doctor. Continued ipratropium bromide 0.02 % solution 0.5 mg inhalation BID Label Comments: INHALE 1 VIAL IN NEBULIZER 4 TIMES DAILY NEEDED xsxrlwo-kzwq-ejbwn-oreg-capryl 100 mg-150 mg- 50 mg-150 mg capsule 1 cap PO DAILY losartan 50 MG tablet 50 mg PO DAILY atenolol 25 MG tablet 25 mg PO DAILY aspirin 81 MG tablet,delayed release (DR/EC) 81 mg PO DAILY rosuvastatin 40 MG tablet 40 mg PO DAILY budesonide-formoterol 1 INHALER inhaler 2 puff inhalation BID albuterol sulfate 1 INHALER inhaler 1 - 2 puff inhalation Q4H PRN PRN (Reason: Sob &/Or Wheezing) pantoprazole 20 mg Tablet,Delayed Release (Dr/Ec) 20 mg PO DAILY vitamin B complex Tablet 1 tab PO DAILY sodium chloride 1,000 mg tablet,soluble 1,000 mg PO DAILY Eliquis 5 mg tablet 5 mg PO BID Rx Instructions: TAKE 1 TABLET BY MOUTH TWICE A DAY Referrals / Follow Up: Lilibeth Ayala MD [Primary Care Provider] - Within 1 Week Jason Montana MD [Med Staff - Active Staff] - See Referral Note (Please follow-up with your cancer doctor upon discharge) Jhonathan Goncalves DO [Med Staff - Active Staff] - See Referral Note (Please follow- up with your radiation oncologist next week as previously scheduled. If any questions or concerns please contact the office sooner) Disposition Disposition (needs filled in before D/C Order can be placed): Home, Self Care Charges/Coding Visit Charges Inpatient E&M: 26718 Disch Hosp >30min
== END 2022-08-27 17:30 | disposition home or self-care (01) | DRG 299 ==
LOC: ED 15:02 → MS3 15:54
PROVIDERS: Family Medicine; Admitting Provider Internal Medicine; Emergency Provider Emergency Medicine; PCP Internal Medicine; Visit Provider Internal Medicine
DX: I87.1 Compression of vein (principal); D61.810 Antineoplastic chemotherapy induced pancytopenia; E22.2 Syndrome of inappropriate secretion of antidiuretic hormone; C34.31 Malignant neoplasm of lower lobe, right bronchus or lung; C79.51 Secondary malignant neoplasm of bone; C77.1 Secondary and unspecified malignant neoplasm of intrathoracic lymph nodes; J44.9 Chronic obstructive pulmonary disease, unspecified; I10 Essential (primary) hypertension; E78.5 Hyperlipidemia, unspecified; K21.9 Gastro-esophageal reflux disease without esophagitis; I25.10 Atherosclerotic heart disease of native coronary artery without angina pectoris; I25.2 Old myocardial infarction; T45.1X5A Adverse effect of antineoplastic and immunosuppressive drugs, initial encounter; Z95.1 Presence of aortocoronary bypass graft; Z95.5 Presence of coronary angioplasty implant and graft; Z79.01 Long term (current) use of anticoagulants; Z79.82 Long term (current) use of aspirin; Z79.899 Other long term (current) drug therapy; Z86.711 Personal history of pulmonary embolism; Z86.718 Personal history of other venous thrombosis and embolism; Z87.891 Personal history of nicotine dependence
CPT/HCPCS: 36415; 36591; 71045; 77014; 77280; 77290; 77295; 77300; 77334; 77412; 80048; 80053; 83735; 83880; 84100; 84484; 85025; 93005; 94640; 96365; 97161; 97165; 97802; 99284; J7030; J7050; Q9967; A4216; J2405; J3490

== ENCOUNTER → 2022-09-04 | Outpatient (CLI) | payer MEDICARE, OTHER, SELFPAY ==
--- NOTE | 2022-09-04 08:38 | MRI_ITS ---
ACR Level 3 findings have been noted. An addendum which confirms receipt of the report will follow. HISTORY: progression of small cell lung cancer, evaluate for brain metastasis. TECHNIQUE: Multiplanar and multisequence MR images of the brain were obtained before and after the intravenous administration of 18 cc Clariscan. 659 images. COMPARISON: None. FINDINGS: BRAIN PARENCHYMA: Heterogeneous right posterior parietal mass with a 2.1 x 2.8 cystic component demonstrating a fluid fluid level from hemorrhage or other proteinaceous content, irregular ring enhancement, and an 8 x 14 mm solid enhancing component. 2.8 x 3 cm right anterior temporal lobe mass with heterogeneous solid as well as irregular ring enhancement. Moderate surrounding vasogenic edema. Peripheral restricted diffusion of the masses from hypercellularity. Mild T1 hyperintensity in the right temporal lobe mass from subacute hemorrhage. Mild chronic white matter changes withoutacute cortical infarct identified. CSF SPACES: Mild generalized volume loss. Sulcal effacement secondary to the right temporal and parietal masses without significant midline shift, effacement of the basal cisterns, or hydrocephalus. VASCULAR SYSTEM: Major intracranial flow voids are maintained. OTHER: 1.7 x 1.8 x 5.2 cm heterogeneously enhancing soft tissue mass lateral to the right orbit extending into the lotus notes administrator space with invasion of the right lateral orbital wall and lateral orbit, displacing the lateral rectus muscle medially. MRI/Brain W/WO Contrast IMPRESSION: 2.8 cm right posterior parietal and 3 cm right anterior temporal lobe masses concerning for metastases. Extracranial 5.2 cm mass lateral to the right orbit with invasion of the right lateral orbital wall, lateral orbit, and lotus notes administrator space also concerning for metastasis. Electronically Signed: Gina Richter MD at 10:37 EDT ,
== END | disposition home or self-care (01) ==
LOC: MRI 08:31
PROVIDERS: PCP Internal Medicine; Referring Provider Student in an Organized Health Care Education/Training Program; Visit Provider Student in an Organized Health Care Education/Training Program
DX: C34.31 Malignant neoplasm of lower lobe, right bronchus or lung (principal)
CPT/HCPCS: 70553; A9575